=== PATIENT | male | born 1940 | race Caucasian/White ===

== ENCOUNTER → 2023-10-24 09:19 | Day surgery (SDC) | payer OTHER, SELFPAY ==
[2023-10-24 09:55] VITALS: BMI 30.8
--- NOTE | 2023-10-24 10:26 | ITS.CL.CARDI ---
[facility] - Cardioversion
Cardioversion
Procedure Report:
Date of Procedure: 10/24/23.
Procedure: Cardioversion.
Indication: Symptomatic atrial fibrillation.
Performing Physician: Mary Samuel MD
Technique: The patient was brought to the holding area. Signed informed consent was obtained. A time out was called and performed. The patient was sedated by a member of the anesthesia service. Anticoagulation status was reviewed and was
appropriate. R-2 pads were placed anteriorly and posteriorly. A 200 J synchronized biphasic shock followed by a 300J biphasic shock restored normal sinus rhythm without significant bradycardia. There were no complications.
Conclusion: Uncomplicated cardioversion from atrial fibrillation to sinus rhythm.
Recommendation: Routine post cardioversion care. Continue termite helper anticoagulation.
cc: Dr Reyes
== END | disposition home or self-care (01) ==
LOC: CATH 09:19
PROVIDERS: ATTENDING PHYSICIAN Nuclear Medicine Nuclear Cardiology; FAMILY PHYSICIAN Family Medicine; OTHER PHYSICIAN Internal Medicine Cardiovascular Disease
DX: I48.0 Paroxysmal atrial fibrillation (principal); I10 Essential (primary) hypertension; E78.00 Pure hypercholesterolemia, unspecified; I44.1 Atrioventricular block, second degree; Z95.0 Presence of cardiac pacemaker; Z87.891 Personal history of nicotine dependence; Z79.01 Long term (current) use of anticoagulants
CPT/HCPCS: 92960; 93005

== ENCOUNTER → 2023-11-09 06:58 | Outpatient (REF) | payer OTHER, SELFPAY | LOC: DHCBC/DCA 06:58 | PROVIDERS: ATTENDING PHYSICIAN Internal Medicine Cardiovascular Disease; FAMILY PHYSICIAN Family Medicine | DX: I48.0 Paroxysmal atrial fibrillation (principal); I10 Essential (primary) hypertension; I50.32 Chronic diastolic (congestive) heart failure; I70.0 Atherosclerosis of aorta | CPT/HCPCS: 78452; 93017; A9500; J2785 ==

== ENCOUNTER 2023-11-14 17:51 | Inpatient (IN) | payer OTHER, SELFPAY ==
[2023-11-14] VITALS (8 sets, daily range): BP systolic 145–169; BP diastolic 73–90; BMI 28.6
[2023-11-14 14:17] LABS: % Basophils 0.2 % (0-2); % Eosinophils 0.4 % (0-6); % Immature Granulocytes 0.3 % (0-0.5); % Lymphocytes 11.2 % (20.5-51.1); % Monocytes 10.9 % (1.7-9.3); Absolute Eosinophils 0.1 10^3/uL (0-0.7); Absolute Lymphocytes 1.5 10^3/uL (1.2-3.4); Absolute Monocytes 1.4 10^3/uL (0.1-0.6); Absolute Neutrophils 10.1 10^3/uL (1.4-6.5); Hematocrit 38.2 % (39.0-52.0); Hemoglobin 13.3 g/dL (13.0-18.0); Mean Corp Hgb Conc. 34.8 g/dL (33.0-37.0); Mean Corpuscular Hgb 30.7 pg (27.0-31.0); Mean Corpuscular Volume 88.2 fL (80.0-94.0); Mean Platelet Volume 10.3 fL (7.4-10.4); Nucleated Red Blood Cells % 0 % (-); Platelet Count 346 10^3/uL (130-400); Red Blood Cell Count 4.33 10^6/uL (4.70-6.10); Red Cell Dist. Width 16.8 % (11.5-14.5); White Blood Cell Count 13.2 10^3/uL (4.8-10.8)
[2023-11-14 14:22] LABS: ALT (SGPT) 22 U/L (0-50); AST (SGOT) 28 U/L (17-59); Alkaline Phosphatase 97 U/L (38-126); Blood Urea Nitrogen 16 mg/dl (9-20); Calcium 9.9 mg/dl (8.4-10.2); Carbon Dioxide 24 mmol/L (22-30); Chloride 104 mmol/L (98-107); Glucose 112 mg/dl (70-99); Potassium 3.3 mmol/L (3.5-5.1); Sodium 139 mmol/L (135-145); Total Bilirubin 1.1 mg/dl (0.2-1.3); Total Protein 6.8 g/dl (6.3-8.2); eGFR > 60.00
[2023-11-14 14:28] LABS: NT-proBNP 8130 pg/ml
--- NOTE | 2023-11-14 15:12 | ED.GENMED ---
History of Present Illness
General
Chief Complaint: Breathing Problem
Source: patient and spouse
Exam Limitations: none
Time Seen by Provider: 11/14/23 14:57
Nursing documentation reviewed up to this point in time: agreed with
Travel History
Have you had any contact with someone who has COVID-19?: No
Do you have any symptoms of coronavirus? Fever > 100 degrees, chills, cough, shortness of breath, sore throat, loss of taste or smell, muscle aches, or headache?: Yes
Symptoms:: sob
History of Present Illness
History of Present Illness:
83-year-old male with a past medical history of hypertension, CHF, atrial fibrillation, pacemaker who presents to the emergency department companied by his for evaluation of shortness of breath. Patient reports that he has had increasing
symptoms over the past few weeks particularly worsening over the past 48 hours. He says that he has been working with cardiology (follows with Dr. Reyes) to evaluate the symptoms over the past few weeks�he says initially he was called and told
that he was in atrial fibrillation per his pacemaker report. He had a cardioversion 3 weeks ago that did not last very long he says. He says that he has had a nuclear stress test and is scheduled to have an echocardiogram as part of outpatient
workup however over the past 48 hours symptoms significantly worsening which prompted trip to the emergency room instead. He says he has a mild cough particular in the morning when he wakes up. Has not noticed any weight gain or edema. He denies
any chest pain. He has not had any fevers or chills. He denies any other complaints.
Past History
Past History
ED Past Medical History: Arrthythmia (Atrial fibrillation), HTN, Hypercholesterolemia and Other (Prostatic hypertrophy)
ED Past Surgical History: Orthopedic
Social History
Tobacco: Former smoker
Drug: None
Review of Systems
Review of Systems
All Other Systems: ROS reviewed and negative except as documented in HPI and ROS
Constitutional: Denies fever or chills
EENT: Denies sore throat or runny nose
Respiratory: Reports cough and trouble breathing
Cardiac: Denies chest pain or palpitations
ABD/GI: Denies abdominal pain, nausea, vomiting or diarrhea
: Denies flank pain
Musculoskeletal: Denies edema, neck pain or back pain
Neurological: Denies headache, weakness or numbness
Phy Exam
Physical Exam
Physical Exam:
General: Awake, alert, oriented x3; no acute distress
Head: Normocephalic, atraumatic
Eyes: Conjunctiva normal
Throat: Airway intact, handling secretions
Neck: Trachea midline, supple without meningismus
Lungs: Pulse ox low normal 93% on room air, normal respiratory rate, no increased work of breathing, speaking in full sentences; bibasilar rales
Heart: Regular rate and rhythm, systolic murmur
Neuro: Cranial nerves grossly intact, speech fluid
Skin: no rash
Extremities: No edema in extremities, warm and well-perfused
Scores
Heart Failure Risk
Heart Failure Risk Score: Yes
History of Stroke or TIA: No
History of intubation for respiratory distress: No
Heart rate on ED arrival >/= 110: No
SaO2 <90% on arrival on room air: No
HR >/=110 during 3min walk test (or too ill to perform test): No
ECG has acute ischemic changes: No
Urea >/=12mmol/L (BUN 33.6mg/dL): No
Serum CO2>/=35mmol/L: No
Troponin I or T elevated to IL Level (0.4mg/dL): No
NT-proBNP >/=5,000ng/L (5,000pg/ml): Yes
HF Risk Score: 1
Admission Status: MEDIUM RISK 5.1% Consider observation or discharge to home with homecare & f/u visit to PCP/Guest Attendant, or SNF for treatment
Heart Score for Chest Pain Patients
STEMI patient?: Not applicable
Withdrawal Assessment of Alcohol
Withdrawal Assessment Completed?: Not applicable
Course
Orders/Labs/Results
Orders:
Orders
11/14/23 13:44
Electrocardiogram (*1) Urgent
Reason for Study: Shortness of Breath
11/14/23 13:45
EKG- Treatment ONCE
11/14/23 13:57
BNP [NT-proBNP] Urgent
Complete Blood Count/With Diff Urgent
Comprehensive Metabolic Panel Urgent
11/14/23 14:58
CR Chest - 2 Views Urgent
Comment:
Reason For Exam: sob
Abnormal Lab Results
11/14/23
13:57
WBC 13.2 H 10^3/uL
(4.8-10.8)
RBC 4.33 L 10^6/uL
(4.70-6.10)
Hct 38.2 L %
(39.0-52.0)
RDW 16.8 H %
(11.5-14.5)
Absolute Neuts (auto) 10.1 H 10^3/uL
(1.4-6.5)
Absolute Monos (auto) 1.4 H 10^3/uL
(0.1-0.6)
Neutrophils % 77.0 H %
(42.2-75.2)
Lymphocytes % 11.2 L %
(20.5-51.1)
Monocytes % 10.9 H %
(1.7-9.3)
Potassium 3.3 L mmol/L
(3.5-5.1)
Glucose 112 H mg/dl
(70-99)
11/14/23 13:57
11/14/23 13:57
Vital Signs
Initial and Last Documented VS:
Initial Vital Signs
Temp Pulse Resp BP Pulse Ox
36.8 C 70 18 167/86 93
11/14/23 13:41 11/14/23 13:41 11/14/23 13:41 11/14/23 13:41 11/14/23 13:41
Last Documented Vital Signs
Temp Pulse Resp BP Pulse Ox
36.8 C 70 18 167/86 93
11/14/23 13:41 11/14/23 13:41 11/14/23 13:41 11/14/23 13:41 11/14/23 13:41
MDM/Problems Addressed
Differential Diagnosis Includes:
CHF, pneumonia, anemia, asthma/bronchitis
MDM/Problems Addressed:
83-year-old male presents with progressive shortness of breath over the past few weeks much worse over the past 48 hours. Low normal pulse ox 93% on room air, mild hypertension on arrival; vital signs otherwise normal. Physical exam as above.
Plan to place an IV check labs including CBC and CMP, BNP. Will check chest x-ray and EKG. Will monitor closely reassess after the above.
Labs reviewed: CBC shows marked leukocytosis to 13.2; no anemia. CMP shows mild hypokalemia repleted p.o. BNP markedly elevated 8130. While EKG shows ventricular-paced rhythm atrial rhythm appears to be a flutter. Awaiting results of chest x-ray.
Chronic conditions affecting care:
CHF, A-fib
Acute Exacerbation and/or Progression of Chronic Illness:
Acutely hypertensive
Acute Exacerbation and/or Progression of Chronic Illness: HTN
*Radiology
Radiology exam reviewed: preliminary read by ED provider and radiology read reviewed
*Pulse Oximetry
Patient hypoxic: no
*EKG
Interpreted by ED Provider?: Yes
Heart Rate: 75
Rate: normal
Rhythm: ventricular paced
*Critical Care Note
Total Time (30-74mins, 75-104mins- exclusive of procedures): Not Applicable
Data Reviewed
Review of Other/Old Records Reveals: Labs, Records, Operative Reports and Discharge Summary
Source: patient, records and spouse
Patient Management
Discussion with other providers: Hospitalist (Discussed with hospitalist) and Medicaid Collection Specialist (Discussed with cardiology)
Escalation/DeEscalation of care consider admission/obs:
Admission indicated
ED Attending Note
-
Portions of this chart may have been created with voice recognition software.� Occasional wrong word or��sound alike� substitutions may have occurred due to the inherent limitations of voice recognition software.
Discharge Plan
Departure
Patient with high blood pressure during this ER visit?: Yes
Discharge Problem:
CHF (congestive heart failure)
Prescriptions:
No Action
tamsulosin 0.4 MG capsule
0.4 mg PO QPM
Patient Comments:
atorvastatin 40 MG tablet
40 mg PO DAILY
levalbuterol tartrate 45 mcg/actuation Hfa Aerosol Inhaler
1 puff INHALATION R Q6HPRN PRN (Reason: sob)
Patient Comments:
1 puff
Eliquis 5 MG tablet
5 mg PO BID Qty: 180 5RF
fluticasone propion-salmeterol [Wixela Inhub] 250-50 mcg/dose Blister With Device
1 inh INHALATION R BID
acetaminophen 325 mg Tablet
650 mg PO DAILYPRN PRN (Reason: mild pain)
vitamin B complex Tablet Extended Release
1 tab PO DAILY
pyridoxine (vitamin B6) 25 mg Tablet
25 mg PO DAILY
therapeutic multivitamin Tablet
1 tab PO DAILY
fexofenadine 180 mg Tablet
180 mg PO DAILY
ascorbic acid (vitamin C) [Vitamin C] 500 mg Tablet
500 mg PO DAILY
olopatadine [Pataday Twice Daily Relief] 0.1 % Drops
1 drp BOTH EYES DAILYPRN PRN (Reason: itchy eyes)
vitamin E 268 mg (400 unit) Capsule
268 mg PO DAILY
Glucosamine Chondroitin 550-30-1 mg Capsule
1 cap PO DAILY
ferrous sulfate [iron] 325 mg (65 mg iron) tablet
325 mg PO DAILY 30 Days Qty: 30 0RF
furosemide 40 mg Tablet
40 mg PO BID AT 0800,1600 30 Days Qty: 60 0RF
guaifenesin 600 mg Tablet Extended Release 12hr
1,200 mg PO Q12 7 Days Qty: 28 0RF
benzonatate 100 mg Capsule
200 mg PO TIDPRN PRN (Reason: cough) 7 Days Qty: 42 0RF
pantoprazole 40 mg Tablet,Delayed Release (Dr/Ec)
40 mg PO DAILY 30 Days Qty: 30 0RF
amiodarone 200 mg tablet
200 mg PO DAILY 30 Days Qty: 30 5RF
Interventions
Interventions:
*Risk Screen - Suicide Last Done: 11/14/23 13:41
*General Assessment Last Done: 11/14/23 13:41
*Neglect/Abuse Screening Last Done: 11/14/23 13:41
*ED COVID-19 Vaccine History Last Done: 11/14/23 13:41
--- NOTE | 2023-11-14 16:08 | CON.CAR ---
Addendum entered and electronically signed by Olivier Lopes MD 11/14/23 16:48:
I saw and examined the patient.
The SNOW GROOMER or PA's note was reviewed and I agree with the note.
Comment: General: Well developed, well nourished in NAD.
Neck: Supple, no JVD, HJR, carotids +2 B/L, no bruits bilaterally.
Heart: Non displaced PMI, RRR, 2/6 basal systolic murmur, No S3, S4, no rubs.
Lungs: Scattered rhonchi at the bases
Extremities: No clubbing, cyanosis or edema bilaterally.
Neuro: Grossly nonfocal, awake, alert and oriented x3.
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
stenosis, AAA with endovascular repair in 2011, GI bleed in July 2023 with AV malformation cauterization. He presents with shortness of breath, orthopnea, diastolic CHF.
Will assess with IV Lasix. Of note he had recurrent A-fib. This will need to be addressed as an outpatient as he is seeing electrophysiology and may consider ablation. His inquired about watchman this can be left up to outpatient
director of photography but he has tolerated anticoagulation well since his GI bleed in July 2024. Also of note patient is scheduled for Mohs surgery on 11/16. He really wants to get this procedure done. I asked him to call dermatology to see
whether Eliquis needs to be held. Discussed with patient and at bedside as well as emergency room doctor.
Original Note:
Consultation
Consultation Request
Date/Time Consultation Requested: 11/14/2023
Date/Time Consultation Performed: 11/14/2023 at 1545
Requesting Provider: Dr. Chou
Performing Provider: Dr. Lopes
Reason for Consultation: CHF
Medical History
-
History of Present Illness:
HPI: Chilango is an 83 year old male with PMH of chronic HFpEF, paroxysmal atrial fibrillation, HTN, HLD, PPM, , MR, AAA, and recent GIB. He presented to [facility] today due to worsening SOB. He states over the past 10 days he has had progressively
worsening SOB. Initially he was noticing SOB with exertion, however this progressed to orthopnea and SOB at rest and with minimal activity. He also noted some increased LE edema, however has not noticed any weight gain. He states he has been
compliant with his lasix and denies any dietary indiscretion or increased sodium intake. Due to worsening symptoms, he came to ER today for evaluation. In ER, he was found to have evidence of acute heart failure on exam. Chest xray with bl small
pleural effusions and proBNP 8130. EKG V paced at 75 BPM, however underlying afib noted. Cardiology consulted for evaluation. At this time patient is feeling well and denies any SOB sitting up in stretcher. He is not on supplemental O2 and pulse ox
is stable at 92-95 at rest.
PMH:
Chronic HFpEF
Paroxysmal atrial fibrillation
Chronic Eliquis anticoagulation
HTN
h/o Wenckebach
s/p Medtronic PPM 10/2022
Mild
Mild to moderate MR
HLD
AAA with endovascular repair 2011
h/o LGIB 07/2023
AVM s/p cauterization 08/01/2023
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
Past Medical History
Past Medical History: Other (In HPI)
Past Surgical History: Other (Intra-abdominal AAA repair 08/2012, tonsillectomy, splenectomy, inguinal hernia repair, shoulder surgery, right carpal tunnel release, Mohs surgery, cataract surgery, Medtronic permanent pacemaker 11/10/2022)
Social History
Tobacco: Former Smoker
Alcohol: Daily
Drug: None
Personal:
Living: With Family
Employment: Retired
Family History
Family History: Reviewed & Not Pertinent
Allergies / Home Medications
Allergy/AdvReac Type Severity Reaction Status Date / Time
ammonium chloride Allergy SKIN RASH Verified 11/14/23 13:44
banana Allergy itchy Verified 11/14/23 13:44
eyes,
throat
swelling
codeine Allergy Unknown Verified 11/14/23 13:44
formaldehyde Allergy skin rash Verified 11/14/23 13:44
Iodinated Contrast Media Allergy hives,swelling,throat Verified 11/14/23 13:44
swelling
melon Allergy itchy Verified 11/14/23 13:44
eyes,
throat
swelling
Penicillins Allergy hives,swell Verified 11/14/23 13:44
ing
Medication Instructions Recorded Confirmed Type
tamsulosin 0.4 mg capsule 0.4 mg PO QPM 08/16/12 10/24/23 History
atorvastatin 40 mg tablet 40 mg PO DAILY 08/02/18 10/24/23 History
levalbuterol tartrate 45 1 puff inhalation R Q6HPRN PRN sob 11/01/22 10/24/23 History
mcg/actuation aerosol inhaler
apixaban 5 mg tablet (Eliquis) 5 mg PO BID #180 tabs 11/10/22 10/24/23 Rx
acetaminophen 325 mg tablet 650 mg PO DAILYPRN PRN mild pain 07/31/23 10/24/23 History
ascorbic acid (vitamin C) 500 mg 500 mg PO DAILY 07/31/23 10/24/23 History
tablet (Vitamin C)
fexofenadine 180 mg tablet 180 mg PO DAILY 07/31/23 10/24/23 History
fluticasone 250 mcg-salmeterol 50 1 inh inhalation R BID 07/31/23 10/24/23 History
mcg/dose blistr powdr for
inhalation (Wixela Inhub)
glucosamine sulf dipot 1 cap PO DAILY 07/31/23 10/24/23 History
chlr,msm,chond 550 mg-C 30 mg-rubin
1 mg capsule (Glucosamine
Chondroitin)
olopatadine 0.1 % eye drops 1 drp BOTH EYES DAILYPRN PRN itchy 07/31/23 10/24/23 History
(Pataday Twice Daily Relief) eyes
pyridoxine (vitamin B6) 25 mg 25 mg PO DAILY 07/31/23 10/24/23 History
tablet
therapeutic multivitamin 1 tab PO DAILY 07/31/23 10/24/23 History
vitamin B complex 1 tab PO DAILY 07/31/23 10/24/23 History
vitamin E 268 mg (400 unit) capsule 268 mg PO DAILY 07/31/23 10/24/23 History
amiodarone 200 mg tablet 200 mg PO DAILY 30 days #30 tabs 08/08/23 10/24/23 Rx
benzonatate 100 mg capsule 200 mg PO TIDPRN PRN cough 7 days 08/08/23 10/24/23 Rx
#42 caps
ferrous sulfate 325 mg (65 mg 325 mg PO DAILY 30 days #30 tabs 08/08/23 10/24/23 Rx
iron) tablet (iron)
furosemide 40 mg tablet 40 mg PO BID AT 0800,1600 30 days 08/08/23 10/24/23 Rx
#60 tabs
guaifenesin 600 mg tablet, 1,200 mg PO Q12 7 days #28 tabs 08/08/23 10/24/23 Rx
extended release 12 hr
pantoprazole 40 mg tablet,delayed 40 mg PO DAILY 30 days #30 tabs 08/08/23 10/24/23 Rx
release
Review of Systems
-
History Source: Patient
All other systems: Negative unless noted
Physical Exam
Vital Signs
Temp Pulse Resp BP Pulse Ox
98.2 F 70 18 167/86 93
11/14/23 13:41 11/14/23 13:41 11/14/23 13:41 11/14/23 13:41 11/14/23 13:41
Lab Results
03/18/24 13:57
11/14/23 13:57
Cdy-M-Qnroaj[place] Pept 8130 pg/ml 11/14/23 13:57
Physical Exam
General: Well Developed, Well Nourished and No Apparent Distress
HEENT: Normocephalic, Anicteric and Moist Mucous Membranes
Respiratory: Crackles and Non Labored Respirations
Cardiac: S1/S2, Irregular Rhythm and Murmur
Musculoskeletal: No Clubbing, No Cyanosis and Edema
Skin: Warm and Dry
Neuro: AO x 3 and Nonfocal/Grossly Intact
Psych: Calm
Impression / Plan
-
PCP: Dr. Davalos
Drum Attendant: Dr. Reyes
Impression:
Presented with SOB
Acute on chronic HFpEF
Paroxysmal atrial fibrillation
Chronic Eliquis anticoagulation
HTN
h/o Wenckebach
s/p Medtronic PPM 10/2022
Mild
Mild to moderate MR
HLD
AAA with endovascular repair 2011
h/o LGIB 07/2023
AVM s/p cauterization 08/01/2023
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
Lexiscan stress test 11/09/2023: Perfusion imaging reveals a small area of mildly decreased perfusion that is fixed in the apical septal, apical anterior, apex, apical inferior segments consistent with soft tissue attenuation/pacing which partially
improves with prone imaging. Functional imaging shows hypokinesis of the apical septal, apical anterior, apical lateral, apex, and apical inferior segments. EF 41%
Echo 12/10/2021: EF 55 to 60%, mild concentric LVH, mild to moderate MR, mild with peak/mean gradients 25/13 mmHg, mild AI
Echo 08/02/2023: Ejection fraction 70%, dilated aortic root at 3.9 cm
Echo 11/15/2023: Study pending
Plan:
-Presented with worsening SOB over the past 10 days. In acute heart failure with b/l pleural effusions and proBNP 8130.
-Will start on IV lasix w/ 40mg now and 40 mg daily. Creat stable at 1.2.
-Has not noted weight gain, although has had poor appetite and decreased intake. Follow daily weights, I&Os.
-Echo 08/02/2023 noted EF 70%, was scheduled for repeat echo today, however missed appt as he was in the hospital. Will recheck this admission.
-He has history of persistent atrial fibrillation and underwent CV 10/24/2023. Reports he was in SR for approximately 5 hours, before recurrent afib noted.
-V paced on EKG and on review of telemetry w/ underlying rate controlled afib noted.
-Continue amiodarone 200mg daily.
-Continue Eliquis 5mg BID. Patient notes he is scheduled for Mohs surgery on 11/16, he will reach out to surgeon to see if AC needs to be held.
-History of LGIB. No recurrent bleeding and hemoglobin stable
-He has an appointment with EP, Dr. Lopez 12/13 to discuss possible ablation.
-K 3.3. Replete.
HPI: Chilango is an 83 year old male with PMH of chronic HFpEF, paroxysmal atrial fibrillation, HTN, HLD, PPM, , MR, AAA, and recent GIB. He presented to [facility] today due to worsening SOB. He states over the past 10 days he has had progressively
worsening SOB. Initially he was noticing SOB with exertion, however this progressed to orthopnea and SOB at rest and with minimal activity. He also noted some increased LE edema, however has not noticed any weight gain. He states he has been
compliant with his lasix and denies any dietary indiscretion or increased sodium intake. Due to worsening symptoms, he came to ER today for evaluation. In ER, he was found to have evidence of acute heart failure on exam. Chest xray with bl small
pleural effusions and proBNP 8130. EKG V paced at 75 BPM, however underlying afib noted. Cardiology consulted for evaluation. At this time patient is feeling well and denies any SOB sitting up in stretcher. He is not on supplemental O2 and pulse ox
is stable at 92-95% at rest.
Data Reviewed
-
EKG: Tracing Personally Visualized and interpreted
Radiology: Report Reviewed by me
Labs: Labs Reviewed by me
Old Records: Reviewed
--- NOTE | 2023-11-14 16:34 | HPS.HSE ---
Addendum entered and electronically signed by Lawanda Pride MD 11/14/23 17:58:
I saw and examined the patient.
The [facility]'s note was reviewed and I agree with the note.
Comment:
83 year old male with PMH of HFpEF, paroxysmal atrial fibrillation, HTN, HLD, PPM, , MR, AAA, GI bleed; presented with shortness of breath and DELANEY for past 10 days. He also noted LE edema, but denied to weight gain. He states he has been compliant
with his Lasix. Denied to chest pain
A/P:
# acute on chronic HFpEF
BNP 8000
CXR unrevealing
Cont IV Lasix 40 mg daily, follow I&O, monitor daily weight
Check echo
Check COVID and flu
Card CS
# Chronic leukocytosis
Afebrile
Continue to monitor
# Hypokalemia likely from diuretics
Potassium 3.3, Repleted in ER
Check Mag level
Follow daily BMP
# Paroxysmal A-fib
# s/p CV 10/24/2023.
Continue amiodarone 200mg daily.
Continue Eliquis 5mg BID.
# Hypertension
Monitor BP, not on specific med outpt
Cont lasix continued
# Hyperlipidemia
Statin
# Iron deficiency anemia
Ferrous sulfate continued
# History of COPD
Not in acute exacerbation
Cont Breo, cont Levalbuterol
# BPH
Cont Flomax
DVT ppx: PEDIATRIC DERMATOLOGIST eliquis
Full Code
Original Note:
Family Physician
-
Family Physician: Mo Lopez
Chief Complaint
-
sob
History of Present Illness
83 year old male with PMH of chronic HFpEF, paroxysmal atrial fibrillation, HTN, HLD, PPM, , MR, AAA, GI bleed presented to us with shortness of breath for past 10 days. started of with sob with activity. stated with orthopnea.noted LE edema
today. denied weight gain. He states he has been compliant with his Lasix. denied chest pain. denied fever, chills, chest congestion, cough, runny nose.denied FRY, dizzy or syncopal episode. denied abdominal pain, n,v, d. denied dysuria or hematuria.
chest x ray with cardiomegaly. 88-95 on RA. received a dose of Lasix in ER. admitting for further management.
Medical History
Past Medical History
Past Medical History: Reports Other
Additional Past Medical History:
Chronic HFpEF
Paroxysmal atrial fibrillation
Chronic Eliquis anticoagulation
HTN
h/o Wenckebach
s/p Medtronic PPM 10/2022
Mild
Mild to moderate MR
HLD
AAA with endovascular repair 2011
h/o LGIB 07/2023
AVM s/p cauterization 08/01/2023
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
Past Surgical History: Reports Other
Additional Past Surgical History:
intra-abdominal AAA repair 08/2012, tonsillectomy, splenectomy, inguinal hernia repair, shoulder surgery, right carpal tunnel release, Mohs surgery, cataract surgery, Medtronic permanent pacemaker 11/10/2022
Social History
Tobacco: Former Smoker
Alcohol: Daily (1 small glass of vodka)
Drug: None
Personal:
Living: With Family
Family History
Family History: Not pertinent
Allergies / Home Medications
Allergies reflects when Allergies were last updated in [employer].
Home Medications with original date entered in [employer]
Allergy/Medication List:
Allergies
Allergy/AdvReac Type Severity Reaction Status Date / Time
ammonium chloride Allergy SKIN RASH Verified 11/14/23 13:44
banana Allergy itchy Verified 11/14/23 13:44
eyes,
throat
swelling
codeine Allergy Unknown Verified 11/14/23 13:44
formaldehyde Allergy skin rash Verified 11/14/23 13:44
Iodinated Contrast Media Allergy hives,swelling,throat Verified 11/14/23 13:44
swelling
melon Allergy itchy Verified 11/14/23 13:44
eyes,
throat
swelling
Penicillins Allergy hives,swell Verified 11/14/23 13:44
ing
Home Medications
tamsulosin 0.4 mg capsule 0.4 mg PO DAILY@1000 08/16/12
atorvastatin 40 mg tablet 40 mg PO DAILY 08/02/18
levalbuterol tartrate 45 mcg/actuation aerosol inhaler 1 puff inhalation R Q6HPRN PRN sob/wheezing 11/01/22
apixaban 5 mg tablet (Eliquis) 5 mg PO BID #180 tabs 11/10/22
acetaminophen 325 mg tablet 650 mg PO DAILYPRN PRN mild pain 07/31/23
ascorbic acid (vitamin C) 500 mg tablet (Vitamin C) 500 mg PO DAILY 07/31/23
fexofenadine 180 mg tablet 180 mg PO DAILY@1000 07/31/23
glucosamine sulf dipot chlr,msm,chond 550 mg-C 30 mg-rubin 1 mg capsule (Glucosamine Chondroitin) 1 cap PO BID 07/31/23
olopatadine 0.1 % eye drops (Pataday Twice Daily Relief) 1 drp BOTH EYES DAILYPRN PRN itchy eyes 07/31/23
pyridoxine (vitamin B6) 25 mg tablet 25 mg PO DAILY 07/31/23
therapeutic multivitamin 1 tab PO DAILY 07/31/23
vitamin B complex 1 tab PO DAILY 07/31/23
vitamin E 268 mg (400 unit) capsule 268 mg PO DAILY 07/31/23
amiodarone 200 mg tablet 200 mg PO DAILY 30 days #30 tabs 08/08/23
ferrous sulfate 325 mg (65 mg iron) tablet (iron) 325 mg PO HS 11/14/23
fluticasone furoate 200 mcg-vilanterol 25 mcg/dose inhalation powder (Breo Ellipta) 1 inh inhalation R DAILY 11/14/23
furosemide 40 mg tablet 40 mg PO DAILY 11/14/23
guaifenesin 600 mg tablet, extended release 12 hr 1,200 mg PO Q12 PRN congestion 11/14/23
Review of Systems
-
Constitutional: Reports No Symptoms
EENT: Reports No Symptoms
Respiratory: Reports Trouble Breathing
Cardiac: Reports No Symptoms
Abdomen/GI: Reports No Symptoms
: Reports No Symptoms
Musculoskeletal: Reports Edema (b/l LE)
Skin: Reports No Symptoms
Neurological: Reports No Symptoms
Endocrine: Reports No Symptoms
Hematologic/Lymphatic: Reports No Symptoms
Psych: Reports No Symptoms
Physical Exam
Vital Signs
Vital Signs
Temp Pulse Resp BP Pulse Ox
98.2 F 70 18 167/86 93
11/14/23 13:41 11/14/23 13:41 11/14/23 13:41 11/14/23 13:41 11/14/23 13:41
Physical Exam
General: Well Developed, Well Nourished and No Apparent Distress
HEENT: NormoCephalic, Moist mucous membranes and Atraumatic
Respiratory: Rales
Cardiac: S1/S2 and Regular Rhythm; No Murmur or Rub
GI: Soft, Non Tender, Non Distended and Normal Bowel Sounds; No Organomegaly
Rectal: Deferred by Provider
Musculoskeletal: No Clubbing, No Cyanosis and No Edema
Skin: No Rash
Neuro: AO x 3 and Nonfocal/grossly intact
Psych: Calm
Laboratory Results
-
11/14/23 13:57
11/14/23 13:57
Laboratory Results
Total Bilirubin 1.1 mg/dl (0.2-1.3) 11/14/23 13:57
AST 28 U/L (17-59) 11/14/23 13:57
ALT 22 U/L (0-50) 11/14/23 13:57
Alkaline Phosphatase 97 U/L (38-126) 11/14/23 13:57
Data Reviewed
-
Diagnostic Radiology: Report Reviewed by me
Lab Data: Labs Reviewed by me
Impression/Plan
-
#progressively exertional dyspnea likely from acute on chronic congestive heart failure
-BNP 2300
-CXR Chronic obstructive pulmonary disease.Small bilateral pleural effusions.Mild cardiomegaly
-EKG with ventricular paced rhythm
-88-95 on RA
-Provide supplemental oxygen to keep sat greater than 92
-Wean as tolerated
-Lasix 40 Mg iv daily
-echo
-strict I&O
-daily weight
-obtain COVID and FLU
-cardiology consulted
# Chronic leukocytosis
-WBCs 13.2
-Afebrile
-Continue to monitor
# Hypokalemia likely from diuretics
-Potassium 3.3
-Repleted in ER
-Monitor BMP
-Monitor BMP in a.m.
# Paroxysmal A-fib
-underwent CV 10/24/2023.
-Continue amiodarone 200mg daily.
-Continue Eliquis 5mg BID.
#hx Hypertension
-Bp stable
-lasix continued
# Hyperlipidemia
-Statin
# Iron deficiency anemia
-Ferrous sulfate continued
# History of COPD
-Not in acute exacerbation
-Breo continued
-Levalbuterol continued
# BPH
-Flomax continued
dvt ppx eliquis
Full Code
[2023-11-14] MEDS: LASIX 40 MG IV (16:48)
[2023-11-14] MEDS: KCL 40 MEQ PO (16:48)
[2023-11-14 17:55] LABS: COVID-19 Antigen Negative (Negative)
[2023-11-14 18:30] LABS: Magnesium 1.9 mg/dl (1.6-2.3)
[2023-11-14] MEDS: ELIQUIS 5 MG PO (20:34)
[2023-11-14] MEDS: FEOSOL 325 MG PO (21:04)
[2023-11-14] MEDS: SYMBICORT 160/4.5 MCG INHALER 2 PUFF INH (22:33)
[2023-11-15] VITALS (7 sets, daily range): BP systolic 123–155; BP diastolic 66–92; PULSE 64; O2SAT 97; BMI 28.0
[2023-11-15] MEDS: SYMBICORT 160/4.5 MCG INHALER 2 PUFF INH ×2 (07:12→17:59)
[2023-11-15 08:01] LABS: Hematocrit 37.7 % (39.0-52.0); Hemoglobin 12.6 g/dL (13.0-18.0); Mean Corp Hgb Conc. 33.4 g/dL (33.0-37.0); Mean Corpuscular Volume 89.8 fL (80.0-94.0); Mean Platelet Volume 10.9 fL (7.4-10.4); Platelet Count 353 10^3/uL (130-400); Red Cell Dist. Width 16.9 % (11.5-14.5); White Blood Cell Count 10.6 10^3/uL (4.8-10.8)
[2023-11-15 08:21] LABS: ALT (SGPT) 19 U/L (0-50); AST (SGOT) 26 U/L (17-59); Albumin 3.6 g/dl (3.5-5.0); Alkaline Phosphatase 95 U/L (38-126); Blood Urea Nitrogen 13 mg/dl (9-20); Calcium 9.5 mg/dl (8.4-10.2); Carbon Dioxide 27 mmol/L (22-30); Chloride 103 mmol/L (98-107); Direct Bilirubin 0.1 mg/dl (0.0-0.4); Estimated Creatinine Clearance 42 ml/min; Glucose 95 mg/dl (70-99); HDL Cholesterol 84 mg/dl; LDL Cholesterol, Calculated 40 mg/dl; Magnesium 1.9 mg/dl (1.6-2.3); Potassium 3.8 mmol/L (3.5-5.1); Sodium 140 mmol/L (135-145); Total Bilirubin 1.2 mg/dl (0.2-1.3); Total Cholesterol 136 mg/dl (50-199); Total Protein 6.2 g/dl (6.3-8.2); Triglyceride 61 mg/dl (10-149); Very Low Density Lipoprotein 12 mg/dl (0-30); eGFR > 60.00
[2023-11-15 08:50] LABS: TSH Reflex To Free T4 1.72 uIU/ml (0.47-4.68)
--- NOTE | 2023-11-15 08:50 | CARDSERVLU ---
Echocardiogram with [facility]ason completed after protocol screening completed. Allergies verified.
Patent IV site: ___L Wrist__
IV site flushed with 0.9% NaCl pre and post administration.
Diluted bolus method utilized to enhance visualization of ventricular elam.
Total volume given: _2.5___ mL
Patient tolerated all procedures well without complications.
[2023-11-15] MEDS: LASIX 40 MG IV (09:28)
[2023-11-15] MEDS: CLARITIN 10 MG PO (09:32)
[2023-11-15] MEDS: FLOMAX 0.400000000000000022 MG PO (09:32)
[2023-11-15] MEDS: LIPITOR 40 MG PO (09:33)
[2023-11-15] MEDS: PACERONE 200 MG PO (09:33)
[2023-11-15] MEDS: ELIQUIS 5 MG PO ×2 (09:33→21:00)
[2023-11-15] MEDS: XOPENEX HFA 45 MCG INHALER 1 PUFF INH ×2 (11:24→17:59)
--- NOTE | 2023-11-15 11:56 | W.PN.HOSP.TC ---
Today's Communication/Plan
-
see A/P
Assessment / Plan
Assessment / Plan
83 year old male with PMH of HFpEF, paroxysmal atrial fibrillation, HTN, HLD, PPM, , MR, AAA, GI bleed; presented with shortness of breath and DELANEY for past 10 days. He also noted LE edema, but denied to weight gain. He states he has been compliant
with his Lasix. Denied to chest pain
A/P:
# acute on chronic HFpEF
BNP 8000
CXR unrevealing
Cont IV Lasix 40 mg daily, follow I&O, monitor daily weight
Check echo
Start low dose Toprol
COVID/Flu are negative
Card on board
# Reactive Leukocytosis, resolved
Afebrile
# Hypokalemia from diuretics
Repleted lyte
# Paroxysmal A-fib
# s/p CV 10/24/2023.
Continue amiodarone 200mg daily.
Continue Eliquis 5mg BID.
# Hypertension
Monitor BP, not on specific med outpt
Start low dose Toprol
Cont lasix as above
# Hyperlipidemia
Statin
# Iron deficiency anemia
Ferrous sulfate continued
# History of COPD
Not in acute exacerbation
Cont Breo, cont Levalbuterol
# BPH
Cont Flomax
DVT ppx: CAREER GUIDANCE TECHNICIAN eliquis
Full Code
DW and daughter at bedside
Anticipated Discharge: > 48 hours
Subjective/Interval History
-
Date of Service: November 15, 2023
Objective Data
-
Labs:
Laboratory Results
11/15/23
06:22
WBC 10.6
Hgb 12.6 L
Hct 37.7 L
Plt Count 353
Sodium 140
Potassium 3.8
Chloride 103
Carbon Dioxide 27
BUN 13
Creatinine 1.2
Glucose 95
Calcium 9.5
Total Bilirubin 1.2
AST 26
ALT 19
Alkaline Phosphatase 95
Vital Signs:
Vital Signs
Temp Pulse Resp BP Pulse Ox
36.8 C 72 16 163/80 95
11/15/23 07:00 11/15/23 11:39 11/15/23 11:39 11/15/23 09:28 11/15/23 11:39
I&O
11/14/23 11/15/23 11/16/23
06:59 06:59 06:59
Intake Total 480 / 480
Output Total 850 / 850
Balance -370 / -370
Review of Systems
-
All other systems: Reviewed and negative
Respiratory: Reports Trouble Breathing
Physical Exam
-
General: Well Developed, Well Nourished, No Apparent Distress, Comfortable and Conversant; Negative Respiratory Distress
HEENT: Normocephalic, Atraumatic, Nose Appears Normal and Ears Appear Normal; Negative Oxygen
Respiratory: Clear to Auscultation and Non Labored Respirations; Negative Accessory Resp Muscle Use
Cardiac: Regular Rhythm and S1/S2
GI: Soft, Nontender, Nondistended and Normal Bowel Sounds
Skin: Warm and Dry
Neuro: Awake, Alert, Oriented and AO x 3
Psych: Calm and Intact Judgement/Insight
Data Reviewed
-
Labs: Labs Reviewed by me
[2023-11-15] MEDS: TOPROL XL 12.5 MG PO (12:39)
--- NOTE | 2023-11-15 12:56 | PTOTSP ---
PATIENT FUNCTIONING INDEPENDENTLY ON LEVEL SURFACES WELL ELEVATIONS. COMPLAINS OF SHORTNESS OF BREATH HOWEVER ROOM AIR SPO2 NO LOWER THAN 91%. RN AWARE. PATIENT REQUIRES NO FURTHER SKILLED P.T. AT THIS TIME. RECOMMEND PATIENT AMBULATE IN HALLS
AD [facility] AND CONTINUE OUTPATIENT P.T. UPON DISCHARGE. WILL DISCHARGE FROM P.T. SERVICES.
--- NOTE | 2023-11-15 15:53 | W.PN.CARDCBS ---
Addendum entered and electronically signed by Eladio Love MD 11/15/23 16:20:
I saw and examined the patient.
The Piano Mover's note was reviewed and I agree with the note.
Comment:
GEN: No distress, awake, Ox3
HEENT: supple, anicteric, mmm
LUNGS: CTA, no wheezes/rales
CV: Irreg, S1/S2, 1/6 syst LSB, no gallop
ABD: soft, BS+, NT/ND
EXT: No edema
NEURO: Gross non-focal
SKIN: No rash
Plan:
Continue IV Lasix. Replete potassium.
He remains in A-fib/flutter. Continue amiodarone low-dose Toprol for rate control for now. He failed recent cardioversion.
Okay to proceed with Mohs procedure while on Eliquis.
Will check echo today. Hopeful for discharge tomorrow
Original Note:
Today's Communication / Plan
-
Responded well to IV diuresis
Replete potassium
Likely transition to oral Lasix in next 24 hours
Continue amiodarone and low-dose Toprol for rate control
Echo pending
Impression / Plan
-
PCP: Dr. Davalos
Tape Rules Printing Machine Operator: Dr. Reyes
Impression:
Presented with SOB
Acute on chronic HFpEF
Paroxysmal atrial fibrillation
Chronic Eliquis anticoagulation
HTN
h/o Wenckebach
s/p Medtronic PPM 10/2022
Mild
Mild to moderate MR
HLD
AAA with endovascular repair 2011
h/o LGIB 07/2023
AVM s/p cauterization 08/01/2023
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
Lexiscan stress test 11/09/2023: Perfusion imaging reveals a small area of mildly decreased perfusion that is fixed in the apical septal, apical anterior, apex, apical inferior segments consistent with soft tissue attenuation/pacing which partially
improves with prone imaging. Functional imaging shows hypokinesis of the apical septal, apical anterior, apical lateral, apex, and apical inferior segments. EF 41%
Echo 12/10/2021: EF 55 to 60%, mild concentric LVH, mild to moderate MR, mild with peak/mean gradients 25/13 mmHg, mild AI
Echo 08/02/2023: Ejection fraction 70%, dilated aortic root at 3.9 cm
Echo 11/15/2023: Pending
Plan:
-Presented 11/14/2023 with worsening SOB over the past 10 days. In acute heart failure with b/l pleural effusions and proBNP 8130.
-Weight down at least 5 pounds overnight with IV diuresis. Continue IV 40 mg for another 24 hours then likely transition to oral Lasix in next 24 hours.
-Creat stable at 1.2.
-K 3.8. Replete.
-Echo 08/02/2023 noted EF 70%. Repeat echo pending
-He has history of persistent atrial fibrillation and underwent CV 10/24/2023. Reports he was in SR for approximately 5 hours, before recurrent afib noted.
-V paced on EKG and on review of telemetry w/ underlying rate controlled afib noted.
-He has an appointment with EP, Dr. Lopez 12/13 to discuss possible ablation.
-Continue amiodarone 200mg daily and low dose Toprol for rate control.
-Continue Eliquis 5mg BID. Patient notes he is scheduled for Mohs surgery on 11/16. Patient discussed with surgeon and is okay to remain on Eliquis.
-History of LGIB. No recurrent bleeding and hemoglobin stable; hemoglobin 12.6
HPI: Chilango is an 83 year old male with PMH of chronic HFpEF, paroxysmal atrial fibrillation, HTN, HLD, PPM, , MR, AAA, and recent GIB. He presented to [facility] today due to worsening SOB. He states over the past 10 days he has had progressively
worsening SOB. Initially he was noticing SOB with exertion, however this progressed to orthopnea and SOB at rest and with minimal activity. He also noted some increased LE edema, however has not noticed any weight gain. He states he has been
compliant with his lasix and denies any dietary indiscretion or increased sodium intake. Due to worsening symptoms, he came to ER today for evaluation. In ER, he was found to have evidence of acute heart failure on exam. Chest xray with bl small
pleural effusions and proBNP 8130. EKG V paced at 75 BPM, however underlying afib noted. Cardiology consulted for evaluation. At this time patient is feeling well and denies any SOB sitting up in stretcher. He is not on supplemental O2 and pulse ox
is stable at 92-95% at rest.
Progress Note - Tape Rules Printing Machine Operator
Subjective
Date of Service: November 15, 2023
Patient seen and examined. Patient reports he is feeling considerably better. He notes significantly improved lower extremity edema and his shortness of breath is better as well.
Objective
Labs:
11/15/23 06:22
11/15/23 06:22
Labs
Hgb 12.6 g/dL (13.0-18.0) L 11/15/23 06:22
Hct 37.7 % (39.0-52.0) L 11/15/23 06:22
Plt Count 353 10^3/uL (130-400) 11/15/23 06:22
Sodium 140 mmol/L (135-145) 11/15/23 06:22
Potassium 3.8 mmol/L (3.5-5.1) 11/15/23 06:22
BUN 13 mg/dl (9-20) 11/15/23 06:22
Creatinine 1.2 mg/dL (0.7-1.3) 11/15/23 06:22
Glucose 95 mg/dl (70-99) 11/15/23 06:22
Vital Signs and I&O:
Vital Signs
Temp Pulse Resp BP Pulse Ox
97.9 F 80 16 155/89 95
11/15/23 11:00 11/15/23 12:39 11/15/23 11:39 11/15/23 12:39 11/15/23 11:39
Vital Signs
Temp Pulse Resp BP Pulse Ox
97.9 F 80 16 155/89 95
11/15/23 11:00 11/15/23 12:39 11/15/23 11:39 11/15/23 12:39 11/15/23 11:39
Intake & Output
11/13/23 11/14/23 11/15/23 11/16/23
06:59 06:59 06:59 06:59
Intake Total 480 / 480
Output Total 850 / 850
Balance -370 / -370
Physical Exam
Physical Exam
GEN: No distress, awake, Ox3
HEENT: supple, anicteric, mmm
LUNGS: Faint crackle at left base otherwise CTA, no wheezes/rales, on room air
CV: Reg, S1/S2, 2/6 harsh syst murmur
ABD: soft, BS+, NT/ND
EXT: No edema, clubbing cyanosis
NEURO: Gross non-focal
SKIN: No rash, warm, dry, pink
--- NOTE | 2023-11-15 16:13 | CM ---
CM met with pt bedside
Pt resides with his spouse in a [place] community, [facility] with 2[facility]
Pt is independent with his ADls without any DMEs
He currently attends outpt therapy
PCP- Josep Lopez
Rx- JOSIE Sood
PT eval- no needs noted
Discharge Disposition- home, no needs anticipated
[2023-11-15] MEDS: KCL 40 MEQ PO (17:31)
[2023-11-15] MEDS: FEOSOL 325 MG PO (21:00)
[2023-11-16 03:55] VITALS: BP 132/66
[2023-11-16 06:00] VITALS: BMI 28.0
[2023-11-16 07:00] VITALS: BP 147/82
[2023-11-16] MEDS: XOPENEX HFA 45 MCG INHALER 1 PUFF INH (07:41)
[2023-11-16] MEDS: SYMBICORT 160/4.5 MCG INHALER 2 PUFF INH (07:41)
--- NOTE | 2023-11-16 07:54 | W.PN.CARDCBS ---
Addendum entered and electronically signed by Olivier Lopes MD 11/16/23 16:15:
I saw and examined the patient.
The [employer]ENCH COMBER or PA's note was reviewed and I agree with the note.
Comment: General: Well developed, well nourished in NAD.
Neck: Supple, no JVD, HJR, carotids +2 B/L, no bruits bilaterally.
Heart: Non displaced PMI, RRR, no murmurs, No S3, S4, no rubs.
Lungs: Scattered rhonchi
Extremities: No clubbing, cyanosis or edema bilaterally.
Neuro: Grossly nonfocal, awake, alert and oriented x3
Stable cardiology status for discharge to home on Lasix 40 mg daily. Okay for Mohs surgery in a.m. without further testing. Will arrange cardiology follow-up in 1 minutes consider ischemic evaluation given reduced ejection fraction. Discussed
with patient and at bedside as well as nursing..
Original Note:
Today's Communication / Plan
-
Transition to PO lasis 40mg daily
Will arrange follow up.
Impression / Plan
-
PCP: Dr. Davalos
Seal Delivery Vehicle Team Technician: Dr. Reyes
Impression:
Presented with SOB
Acute on chronic HFrEF
Paroxysmal atrial fibrillation
Chronic Eliquis anticoagulation
Cardiomyopathy
HTN
h/o Wenckebach
s/p Medtronic PPM 10/2022
Mild
Severe MR
HLD
AAA with endovascular repair 2011
h/o LGIB 07/2023
AVM s/p cauterization 08/01/2023
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
Lexiscan stress test 11/09/2023: Perfusion imaging reveals a small area of mildly decreased perfusion that is fixed in the apical septal, apical anterior, apex, apical inferior segments consistent with soft tissue attenuation/pacing which partially
improves with prone imaging. Functional imaging shows hypokinesis of the apical septal, apical anterior, apical lateral, apex, and apical inferior segments. EF 41%
Echo 12/10/2021: EF 55 to 60%, mild concentric LVH, mild to moderate MR, mild with peak/mean gradients 25/13 mmHg, mild AI
Echo 08/02/2023: Ejection fraction 70%, dilated aortic root at 3.9 cm
Echo 11/15/2023: EF 30-35%, mid to distal anterior and anteroseptal hypokinesis, apical akinesis, severe MR, moderate TR, estimated PAP 60-65%
Plan:
-Presented 11/14/2023 with worsening SOB over the past 10 days. In acute heart failure with b/l pleural effusions and proBNP 8130.
-Weight down at least 5 pounds this admission with IV diuresis. Volume status improved. Slept well overnight with no SOB.
-Will transition to PO lasix 40mg daily. Creat stable at 1.3. Check BMP in 1 week as OP.
-Echo 11/14 w/ newly reduced EF at 30-35% and severe MR. Discussed with patient and will consider further workup/cath as OP.
-He has history of persistent atrial fibrillation and underwent CV 10/24/2023. Reports he was in SR for approximately 5 hours, before recurrent afib noted.
-V paced on EKG and on review of telemetry w/ underlying rate controlled afib noted.
-He has an appointment with EP, Dr. Lopez 12/14/2023 to discuss possible ablation.
-Continue amiodarone 200mg daily and low dose Toprol for rate control.
-Continue Eliquis 5mg BID. Patient notes he is scheduled for Mohs surgery on 11/16. Patient discussed with surgeon and is okay to remain on Eliquis.
-History of LGIB. No recurrent bleeding and hemoglobin stable.
-Will arrange follow up.
HPI: Chilango is an 83 year old male with PMH of chronic HFpEF, paroxysmal atrial fibrillation, HTN, HLD, PPM, , MR, AAA, and recent GIB. He presented to [facility] today due to worsening SOB. He states over the past 10 days he has had progressively
worsening SOB. Initially he was noticing SOB with exertion, however this progressed to orthopnea and SOB at rest and with minimal activity. He also noted some increased LE edema, however has not noticed any weight gain. He states he has been
compliant with his lasix and denies any dietary indiscretion or increased sodium intake. Due to worsening symptoms, he came to ER today for evaluation. In ER, he was found to have evidence of acute heart failure on exam. Chest xray with bl small
pleural effusions and proBNP 8130. EKG V paced at 75 BPM, however underlying afib noted. Cardiology consulted for evaluation. At this time patient is feeling well and denies any SOB sitting up in stretcher. He is not on supplemental O2 and pulse ox
is stable at 92-95% at rest.
Progress Note - Seal Delivery Vehicle Team Technician
Subjective
Date of Service: November 16, 2023
Feeling well. SOB improved, no edema.
Objective
Labs:
Labs
Hgb 12.6 g/dL (13.0-18.0) L 11/15/23 06:22
Hct 37.7 % (39.0-52.0) L 11/15/23 06:22
Plt Count 353 10^3/uL (130-400) 11/15/23 06:22
Sodium 140 mmol/L (135-145) 11/15/23 06:22
Potassium 3.8 mmol/L (3.5-5.1) 11/15/23 06:22
BUN 13 mg/dl (9-20) 11/15/23 06:22
Creatinine 1.2 mg/dL (0.7-1.3) 11/15/23 06:22
Glucose 95 mg/dl (70-99) 11/15/23 06:22
Vital Signs and I&O:
Vital Signs
Temp Pulse Resp BP Pulse Ox
97.8 F 75 16 132/66 96
11/16/23 03:55 11/16/23 07:46 11/16/23 07:46 11/16/23 03:55 11/16/23 07:46
Vital Signs
Temp Pulse Resp BP Pulse Ox
97.8 F 75 16 132/66 96
11/16/23 03:55 11/16/23 07:46 11/16/23 07:46 11/16/23 03:55 11/16/23 07:46
Intake & Output
11/14/23 11/15/23 11/16/23 11/17/23
06:59 06:59 06:59 06:59
Intake Total 480 / 480 1620 / 1620
Output Total 850 / 850 1025 / 1025
Balance -370 / -370 595 / 595
Physical Exam
Physical Exam
GEN: No distress, awake, alert, oriented x3
HEENT: supple, anicteric, mmm
LUNGS: CTA, no wheezes/rales, on room air
CV: Reg, S1/S2, 2/6 harsh syst murmur
ABD: soft, BS+, NT/ND
EXT: No edema, clubbing, or cyanosis
NEURO: Gross non-focal
SKIN: No rash, warm, dry, pink
[2023-11-16 07:59] LABS: Hemoglobin 13.8 g/dL (13.0-18.0); Mean Corp Hgb Conc. 33.7 g/dL (33.0-37.0); Mean Corpuscular Hgb 30.4 pg (27.0-31.0); Mean Corpuscular Volume 90.3 fL (80.0-94.0); Mean Platelet Volume 11.3 fL (7.4-10.4); Platelet Count 366 10^3/uL (130-400); Red Blood Cell Count 4.54 10^6/uL (4.70-6.10); Red Cell Dist. Width 17.1 % (11.5-14.5); White Blood Cell Count 9.5 10^3/uL (4.8-10.8)
[2023-11-16 08:09] LABS: Blood Urea Nitrogen 18 mg/dl (9-20); Calcium 9.1 mg/dl (8.4-10.2); Carbon Dioxide 27 mmol/L (22-30); Chloride 103 mmol/L (98-107); Estimated Creatinine Clearance 39 ml/min; Glucose 90 mg/dl (70-99); Magnesium 1.8 mg/dl (1.6-2.3); Potassium 3.9 mmol/L (3.5-5.1); Sodium 139 mmol/L (135-145); eGFR 54.51
[2023-11-16] MEDS: TOPROL XL 12.5 MG PO (08:53)
[2023-11-16] MEDS: PACERONE 200 MG PO (08:54)
[2023-11-16] MEDS: LASIX 40 MG IV (08:54)
[2023-11-16] MEDS: LIPITOR 40 MG PO (08:54)
[2023-11-16] MEDS: ELIQUIS 5 MG PO (08:54)
[2023-11-16] MEDS: CLARITIN 10 MG PO (09:38)
[2023-11-16] MEDS: FLOMAX 0.400000000000000022 MG PO (09:38)
[2023-11-16 11:00] VITALS: BP 125/71
--- NOTE | 2023-11-16 12:26 | W.PN.HOSP.TC ---
Addendum entered and electronically signed by Lawanda Pride MD 11/16/23 15:16:
total DC time 35 min
Original Note:
Today's Communication/Plan
-
DC home with
Assessment / Plan
Assessment / Plan
83 year old male with PMH of HFpEF, paroxysmal atrial fibrillation, HTN, HLD, PPM, , MR, AAA, GI bleed; presented with shortness of breath and DELANEY for past 10 days. He also noted LE edema, but denied to weight gain. He states he has been compliant
with his Lasix. Denied to chest pain
A/P:
# acute on chronic HFpEF
BNP 8000
CXR unrevealing
IV Lasix 40 mg daily -> PO Lasix 40mg daily
Echo: Mid to distal anterior and anteroseptal hypokinesis. EF 30-35%.�Severe mitral regurgitation.
Started low dose Toprol , cont
COVID/Flu are negative
Card on board
# Reactive Leukocytosis, resolved
Afebrile
# Hypokalemia from diuretics
Repleted lyte
# Paroxysmal A-fib
# s/p CV 10/24/2023.
Continue amiodarone 200mg daily.
Continue Eliquis 5mg BID.
# Hypertension
Monitor BP, not on specific med outpt
Started low dose Toprol
Cont lasix as above
# Hyperlipidemia
Statin
# Iron deficiency anemia
Ferrous sulfate continued
# History of COPD
Not in acute exacerbation
Cont Breo, cont Levalbuterol
# BPH
Cont Flomax
DVT ppx: T[employer]ING M[employer]TER eliquis
Full Code
DW at bedside
Anticipated Discharge: Today
Subjective/Interval History
-
Date of Service: November 16, 2023
Objective Data
-
Labs:
Laboratory Results
11/16/23
06:25
WBC 9.5
Hgb 13.8
Hct 41.0
Plt Count 366
Sodium 139
Potassium 3.9
Chloride 103
Carbon Dioxide 27
BUN 18
Creatinine 1.3
Glucose 90
Calcium 9.1
Vital Signs:
Vital Signs
Temp Pulse Resp BP Pulse Ox
36.1 C 69 18 125/71 99
11/16/23 11:00 11/16/23 11:00 11/16/23 11:00 11/16/23 11:00 11/16/23 11:00
I&O
11/15/23 11/16/23 11/17/23
06:59 06:59 06:59
Intake Total 480 / 480 1620 / 1620
Output Total 850 / 850 1025 / 1025
Balance -370 / -370 595 / 595
Review of Systems
-
All other systems: Reviewed and negative
Physical Exam
-
General: Well Developed, Well Nourished, No Apparent Distress, Comfortable and Conversant; Negative Respiratory Distress
HEENT: Normocephalic, Atraumatic, Nose Appears Normal and Ears Appear Normal; Negative Oxygen
Respiratory: Clear to Auscultation and Non Labored Respirations; Negative Accessory Resp Muscle Use
Cardiac: Regular Rhythm and S1/S2
GI: Soft, Nontender, Nondistended and Normal Bowel Sounds
Skin: Warm and Dry
Neuro: Awake, Alert, Oriented and AO x 3
Psych: Calm and Intact Judgement/Insight
Data Reviewed
-
Labs: Labs Reviewed by me
[2023-11-16 13:00] VITALS: BP 130/82
--- NOTE | 2023-11-16 14:21 | CM ---
MD entered order for discharge.
SPoke with Elva and patient in room. will drive him home.
Pt said he is ready for discharge.
He said he will resume his out pt PT at [facility].He will set up .
PLAN Home no needs
--- NOTE | 2023-11-16 14:50 | PTCARENOTE ---
Reviewed discharge instructions with patient and . Both verbalize understanding of discharge instructions. IV and tele removed. Patient left via wheelchair with staff escort and .
--- NOTE | 2023-11-16 15:08 | W.DCSUMMARY ---
Discharge Summary
Discharge Data
Date of Admission: 11/14/23
Date of Discharge: 11/16/23
-
Pending Results: No
Hospital Course
Principal Diagnosis:
Acute on chronic heart failure with reduced ejection fraction
Chronic Diagnoses:�
Paroxysmal atrial fibrillation, status post cardioversion 10/24/2023.
Hypertension
Hyperlipidemia
Iron deficiency anemia, on Ferrous sulfate
History of chronic obstructive pulmonary disease
Benign prostate hypertrophy, on Flomax
Consultations:�
Cardiology
Procedures:�
None
Clinical course:�
This is a 83 year old male with past medical history as stated above, who presented with shortness of breath and dyspnea on exertion for 10 days prior to admission. He also noted leg swelling, but denied to weight gain. He had been compliant with
Lasix.
Problem 1:
Acute on chronic heart failure with reduced ejection fraction.
His BNP was at 8000 on admission, but his CXR was unrevealing.
He was treated with IV Lasix 40 mg daily while in the hospital, and he can continue with oral Lasix 40 mg daily following discharge.
His Echo showed Mid to distal anterior and anteroseptal hypokinesis, EF 30-35%, Severe mitral regurgitation.
He was started with low dose Toprol at 12.5 for both his heart failure and blood pressure control, which he can continue going forward.
As for the rest of his medical problems, they were stable during his hospital stay.
Discharge Plan
-
Patient Disposition: Home with Home Care
Discharge Diagnosis/Procedures: acute on chronic heart failure with preserved ejection fraction
Condition: Fair
Diet: As tolerated, Low Fat, Low Cholesterol, Low Sodium and Restrict fluids to 48 oz
Activity: As tolerated
Driving Restrictions: As prior to admission
Referrals:
Mo Lopez MD [Family Provider] - in less than 1 week
Samantha Traylor PA-C [Specified Professional Personl] - 11/23/23 9:20 am (You have a cardiology follow up appointment at the [place] office. Please call with questions. )
Additional Discharge Medication Instructions: You were started with low dose Toprol at 12.5 mg daily, continue going forward.
You can continue with Symbicort in place of your prior to admission Breo
Prescriptions:
New
metoprolol succinate 25 mg Tablet Extended Release 24 Hr
12.5 mg PO DAILY Qty: 30 0RF
budesonide-formoterol [Symbicort] 160-4.5 mcg/actuation HFA aerosol inhaler
2 inh inhalation Q12H Qty: 10.2 0RF
Continued
tamsulosin 0.4 MG capsule
0.4 mg PO DAILY@1000
Patient Comments:
atorvastatin 40 MG tablet
40 mg PO DAILY
levalbuterol tartrate 45 mcg/actuation Hfa Aerosol Inhaler
1 puff INHALATION R Q6HPRN PRN (Reason: sob/wheezing)
Eliquis 5 MG tablet
5 mg PO BID Qty: 180 5RF
acetaminophen 325 mg Tablet
650 mg PO DAILYPRN PRN (Reason: mild pain)
vitamin B complex Tablet Extended Release
1 tab PO DAILY
pyridoxine (vitamin B6) 25 mg Tablet
25 mg PO DAILY
therapeutic multivitamin Tablet
1 tab PO DAILY
fexofenadine 180 mg Tablet
180 mg PO DAILY@1000
ascorbic acid (vitamin C) [Vitamin C] 500 mg Tablet
500 mg PO DAILY
olopatadine [Pataday Twice Daily Relief] 0.1 % Drops
1 drp BOTH EYES DAILYPRN PRN (Reason: itchy eyes)
vitamin E 268 mg (400 unit) Capsule
268 mg PO DAILY
Glucosamine Chondroitin 550-30-1 mg Capsule
1 cap PO BID
amiodarone 200 mg tablet
200 mg PO DAILY 30 Days Qty: 30 5RF
furosemide 40 mg tablet
40 mg PO DAILY
ferrous sulfate [iron] 325 mg (65 mg iron) tablet
325 mg PO HS
guaifenesin 600 mg tablet extended release 12hr
1,200 mg PO Q12 PRN (Reason: congestion)
Discontinued
fluticasone furoate-vilanterol [Breo Ellipta] 200-25 mcg/dose blister with device
1 inh INHALATION R DAILY
Discharge Orders:
Discharge Patient (As Directed); Ordered 11/16/23
Ordered By: Lawanda Pride
Discharge Date and Time
Discharge Date/Time: 11/16/23 14:21
== END 2023-11-16 14:21 | disposition home or self-care (01) | DRG 291 ==
LOC: 4 EAST ACU 17:51
PROVIDERS: Registered Nurse; Student in an Organized Health Care Education/Training Program; ADMITTING PHYSICIAN Internal Medicine; CONSULT PHYSICIAN Internal Medicine Cardiovascular Disease; EMERGENCY PHYSICIAN Emergency Medicine; FAMILY PHYSICIAN Family Medicine
DX: I11.0 Hypertensive heart disease with heart failure (principal); I50.33 Acute on chronic diastolic (congestive) heart failure; I48.19 Other persistent atrial fibrillation; E87.6 Hypokalemia; D50.9 Iron deficiency anemia, unspecified; N40.0 Benign prostatic hyperplasia without lower urinary tract symptoms; J44.9 Chronic obstructive pulmonary disease, unspecified; E78.00 Pure hypercholesterolemia, unspecified; I34.0 Nonrheumatic mitral (valve) insufficiency; D72.829 Elevated white blood cell count, unspecified; T50.2X5A Adverse effect of carbonic-anhydrase inhibitors, benzothiadiazides and other diuretics, initial encounter; Y92.9 Unspecified place or not applicable; Z95.0 Presence of cardiac pacemaker; Z87.891 Personal history of nicotine dependence; Z79.51 Long term (current) use of inhaled steroids; Z79.01 Long term (current) use of anticoagulants; Z90.81 Acquired absence of spleen; Z88.5 Allergy status to narcotic agent; Z88.0 Allergy status to penicillin; Z91.018 Allergy to other foods; Z11.52 Encounter for screening for COVID-19; Z86.79 Personal history of other diseases of the circulatory system; Z87.19 Personal history of other diseases of the digestive system; Z90.411 Acquired partial absence of pancreas; Z91.041 Radiographic dye allergy status
CPT/HCPCS: 71046; 80048; 80053; 80061; 82248; 83735; 83880; 84443; 85025; 85027; 87502; 87811; 93005; 93306; 94640; 97161; 99285; Q9950

== ENCOUNTER 2023-12-01 06:35 | Day surgery (SDC) | payer OTHER, SELFPAY ==
[2023-12-01] VITALS (13 sets, daily range): BP systolic 135–146; BP diastolic 69–86; BMI 29.1
[2023-12-01] MEDS: LOW STRENGTH ASPIRIN 324 MG PO (07:26)
[2023-12-01] MEDS: NSS 200 ML IV (07:30)
--- NOTE | 2023-12-01 09:36 | ITS.CL.CATH ---
[employer] S[employer] - Catheterization
Cardiac Catheterization
Procedure Report:
RIGHT AND LEFT HEART STUDY
Date of Procedure: December 01, 2023
Referring: Dr. Sherri Reyes
PROCEDURES:
1. Right heart catheterization
2. Left heart catheterization with coronary and single-plane left ventriculography
INDICATION: New cardiomyopathy and exertional dyspnea with atrial fibrillation. Recent admission for GI bleeding and negative GI workup
ACCESS: Right radial artery, 6 Persian sheath in right common femoral vein, 6 Persian sheath. Access was obtained with ultrasound-guided
HEMODYNAMICS : mmHg
RA (m) : 14
RV (s/d, m) : 43/9, 16
PA (s/d, m) : 41/16, 29
PCWP (m) : 24
AO (s/d, m) : 152/76, 107
LV (s/d) : 148/20
LVEDP : 27
Estimated Ritika Cardiac Output: 5.2 L / min and Cardiac Index: 2.7 L/ min / m-2
Systemic vascular resistance: 17.9 Wood units or 1431 [id number](-5)
Pulmonary vascular resistance: 0.96 Wood units or 77 [id number]-go(-5)
CORONARY FINDINGS :
Dominance: Right
LEFT MAIN: Large-caliber with very mild distal tapering
LEFT ANTERIOR DESCENDING: The LAD arises normally from the left main and runs in the anterior interventricular groove. The LAD approaches but does not wraparound the apex. Minor irregularities are noted.
CIRCUMFLEX: The circumflex is a large caliber nondominant vessel supplying 2 sizable obtuse marginal branches. Minor luminal irregularities are noted with no hemodynamically significant obstructive stent
RIGHT CORONARY ARTERY: The right coronary artery is a large-caliber dominant vessel that has minor luminal irregularities. The mid RCA just beyond a small RV marginal branch has a 20-30% stenosis. The PDA is large and widely patent. The
posterolateral branch is a small caliber vessel that is patent
VENTRICULOGRAPHY: Left ventriculography was performed in an TUCKER projection. The digital single-plane left ventricular ejection fraction is visually estimated at 35% with global hypokinesis. There is +2 mitral regurgitation noted to a dilated left
atrium
RADIATION SUMMARY: Fluoro Time (min): 9.4, Dose (mGy): 384, DAP (Gy.cm2) : 37
CONCLUSIONS
1. Nonobstructive coronary disease
2. Normal right ventricular filling pressures and mildly elevated left ventricular filling pressures. I do not believe pulmonary capillary wedge pressure was true tracing and pulmonary artery diastolic pressures measured 16 mmHg
RECOMMENDATIONS
1. Continued guideline directed medical therapy for nonischemic cardiomyopathy
2. Transthoracic echocardiogram was interpreted as severe mitral regurgitation. Left ventriculography was more suggestive of mild or more likely moderate mitral regurgitation. I determining severity and etiology of mitral regurgitation may impact
treatment strategy and we will therefore schedule a transesophageal echocardiogram with Dr. Reyes in the next 1 to 2 weeks. We canceled the EP evaluation with Dr. Lopez until the RADHA is completed
Copy to: Dr. Sherri Reyes
== END 2023-12-01 12:15 | disposition home or self-care (01) ==
LOC: CATH 06:35
PROVIDERS: ATTENDING PHYSICIAN Internal Medicine Interventional Cardiology; FAMILY PHYSICIAN Family Medicine; OTHER PHYSICIAN Internal Medicine Cardiovascular Disease
DX: I25.10 Atherosclerotic heart disease of native coronary artery without angina pectoris (principal); I42.9 Cardiomyopathy, unspecified; R06.09 Other forms of dyspnea; I48.0 Paroxysmal atrial fibrillation; I11.0 Hypertensive heart disease with heart failure; I50.22 Chronic systolic (congestive) heart failure; E78.00 Pure hypercholesterolemia, unspecified; I35.0 Nonrheumatic aortic (valve) stenosis; I34.1 Nonrheumatic mitral (valve) prolapse; R73.03 Prediabetes; Z95.0 Presence of cardiac pacemaker; Z87.891 Personal history of nicotine dependence; Z79.01 Long term (current) use of anticoagulants
CPT/HCPCS: 93460; C1894; Q9967

== ENCOUNTER 2023-12-09 07:26 | Day surgery (SDC) | payer OTHER, SELFPAY | END 2023-12-09 09:45 | disposition home or self-care (01) | LOC: CATH 07:26 | PROVIDERS: ATTENDING PHYSICIAN Internal Medicine Cardiovascular Disease; FAMILY PHYSICIAN Family Medicine; OTHER PHYSICIAN Internal Medicine Cardiovascular Disease | DX: I08.3 Combined rheumatic disorders of mitral, aortic and tricuspid valves (principal); I11.0 Hypertensive heart disease with heart failure; I50.22 Chronic systolic (congestive) heart failure; E78.00 Pure hypercholesterolemia, unspecified; I48.0 Paroxysmal atrial fibrillation; R73.03 Prediabetes; Z95.0 Presence of cardiac pacemaker; Z79.01 Long term (current) use of anticoagulants; Z87.891 Personal history of nicotine dependence | CPT/HCPCS: 93312; 93320; 93325 ==

== ENCOUNTER → 2023-12-16 10:22 | Outpatient (REF) | payer OTHER, SELFPAY | LOC: RAD 10:22 | PROVIDERS: ATTENDING PHYSICIAN Surgery Vascular Surgery; FAMILY PHYSICIAN Family Medicine | DX: I71.40 Abdominal aortic aneurysm, without rupture, unspecified (principal) | CPT/HCPCS: 76770 ==

== ENCOUNTER → 2023-12-26 11:28 | Outpatient (REF) | payer OTHER, SELFPAY | LOC: RAD 11:28 | PROVIDERS: ATTENDING PHYSICIAN Physician Assistant; FAMILY PHYSICIAN Family Medicine | DX: I71.40 Abdominal aortic aneurysm, without rupture, unspecified (principal) | CPT/HCPCS: 74176 ==

== ENCOUNTER 2024-02-09 08:30 | Day surgery (SDC) | payer OTHER, SELFPAY ==
[2024-02-09] VITALS (11 sets, daily range): BP systolic 108–146; BP diastolic 79–90; BMI 26.5
[2024-02-09 08:56] LABS: Hematocrit 44.8 % (39.0-52.0); Hemoglobin 15.4 g/dL (13.0-18.0); Mean Corp Hgb Conc. 34.4 g/dL (33.0-37.0); Mean Corpuscular Hgb 31.9 pg (27.0-31.0); Mean Corpuscular Volume 92.8 fL (80.0-94.0); Mean Platelet Volume 10.2 fL (7.4-10.4); Platelet Count 375 10^3/uL (130-400); Red Blood Cell Count 4.83 10^6/uL (4.70-6.10); Red Cell Dist. Width 17.2 % (11.5-14.5); White Blood Cell Count 6.4 10^3/uL (4.8-10.8)
[2024-02-09 09:04] LABS: ALT (SGPT) 23 U/L (0-50); AST (SGOT) 30 U/L (17-59); Albumin 4.3 g/dl (3.5-5.0); Alkaline Phosphatase 118 U/L (38-126); Blood Urea Nitrogen 21 mg/dl (9-20); Calcium 9.7 mg/dl (8.4-10.2); Carbon Dioxide 28 mmol/L (22-30); Chloride 102 mmol/L (98-107); Glucose 197 mg/dl (70-99); Potassium 4.6 mmol/L (3.5-5.1); Sodium 141 mmol/L (135-145); Total Bilirubin 0.9 mg/dl (0.2-1.3); Total Protein 7.3 g/dl (6.3-8.2); eGFR 49.87
[2024-02-09 09:09] LABS: INR 1.25; PT 15.7 Sec (11.4-14.6)
[2024-02-09 11:28] LABS: ACT-LR - POC 285 Seconds (116-155)
[2024-02-09 11:59] LABS: ACT-LR - POC 313 Seconds (116-155)
--- NOTE | 2024-02-09 12:04 | ITS.CL.ABL ---
[employer] - Ablation
Ablation
Procedure Report:
ELECTROPHYSIOLOGY ABLATION STUDY
DATE:: February 09, 2024 REFERRING: Dr. Sherri Reyes
INDICATION: Persistent and drug refractory supraventricular tachycardia in the form of atrial fibrillation which is symptomatic.
HISTORY: See H and P. As above
ANTIARRHYTHMIC DRUG: Amiodarone
PRE-PROCEDURE RADHA: No intracardiac thrombus on intracardiac ultrasound
PRESENTING RHYTHM: Atrial fibrillation
'TIME-OUT': called and confirmed.
SEDATION/ANESTHESIA: provided via the anesthesia department using general anesthesia (LMA).
INTRAVENOUS/ARTERIAL ACCESS:
Right femoral venous - 10 Fr, 8Fr
Ultrasound guidance for bilateral femoral vein access was utilized by me to obtain access with demonstration of normal anatomy
CHADS-VASC Score:
HAS-Bled Score
PROCEDURE:
1. A decapolar CS catheter was placed within the CS for mapping and pacing. This was also used as the reference catheter for the 3-D map. The patient's dual-chamber pacemaker was interrogated pre and post procedure and found to have stable and
acceptable lead parameters in the right atrial and right ventricular leads. Patient was programmed to DDDR 60 to 130 bpm post procedure given the patient's baseline Mobitz 1 type II AV block.
2. The intracardiac ultrasound catheter was positioned in the RA to identify the FO for targeting of transseptal puncture, assist in identification of the pulmonary vein ostia, monitoring pre and post ablation pulmonary vein flow velocities,
monitoring for 'bubble' formation during RF application as a sign of thermal injury, and to monitor for pericardial effusion during mapping and ablation procedure. Left atrial size, LV ejection fraction, and pulmonary vein flows were monitored
pre and post ablation procedure. The other valves were inspected and found to be free of significant regurgitation or stenosis.
3. Half of the calculated heparin bolus was administered prior to the first transeptal puncture. Transseptal puncture was performed to diagnose RA and LA pressure so that safety of LA mapping and ablation could be further assessed, and to access
the left atrium and pulmonary veins for mapping and ablation. This entailed advancing an 12 Welsh Contour sheath with dilator apparatus into the superior vena cava and withdrawing both (monitoring intracardiac ultrasound, fluoroscopy and tip
pressure) with the tip oriented toward the atrial septum. The fossa ovalis was engaged (indicated by sudden displacement of the sheath tip as well as tenting of the fossa seen on intracardiac ultrasound). Left atrial access required a pass with
the Brockenbrough needle extended. Left atrial catheter position was confirmed by pressure monitoring (RA mean pressure 8 mm Hg and LA mean presure 8 mm Hg), LA saturation (99%), as well as fluoroscopy. The sheath was advanced over the dilator
and positioned in the left atrium. The remainder of the calculated heparin bolus was administered and heparin was
infused to maintain ACT at 300 -350 seconds throughout the case.
4. RA pacing was performed via the proximal decapolar poles and LA pacing was performed via the distal decapolr poles.
5. A quadrapolar catheter was first positioned at the His position for His Bundle recording which was tagged via the 3-D Navex sytem, and then passed to the RVA for RV pacing and recording.
6. The ablation catheter was positioned through one of the transeptal seaths and a 20 pole ring mapping catheter was positioned through the second seath into the LA and then the ostia of the LIPV, LSPV, RSPV and the RIPV.
7. Next, a 3-D map was created using Navex. A 3-D reconstructed CT image was compared to the 3-D Navex map to assist in anatomic interpretation, mapping and ablation. The CT image and the NavX image were fused.
8. Although the patient was somewhat organized in V1 V2 on surface electrocardiogram intracardiac recordings demonstrated atrial fibrillation in the left atrium. Pulmonary vein isolation was performed with the PFA catheter and the left atrial
posterior wall was also isolated targeting any available substrate. The multipolar catheter was utilized for pre and post electroanatomic voltage mapping. Post cardioversion the patient's demonstrated entrance and exit block in 4 pulmonary veins
and the left atrial posterior wall approximately centimeter and a half below the inferior portion of the veins and up through the roof. The patient was noninducible for a tachyarrhythmia post procedure. A total of 74 lesions were given with the
pulse select catheter
9. Patient's device was programmed as above and a kffaiw-[id number] suture was placed in the right femoral vein after 40 mg of protamine was given.
TOTAL FLOURO TIME: 12.7 minutes 124 mGy
TOTAL RF DURATION: 0 minutes
REVERSAL OF HEPARIN: 40 mg of protamine, slow IV administration
COMPLICATIONS:
None
Intracardiac US shows no pericardial effusion post ablation.
SUMMARY:
Complex left atrial mapping and ablation.
Isolation of all 4 pulmonary veins and the posterior wall as above.
RECOMMENDATIONS:
1. Admit to monitored bed.
2. Resume anticoagulation
3. Lower amiodarone to 100 mg daily
4. Consider same-day discharge
Copy to: Dr. Sherri Reyes
[2024-02-09] MEDS: FLOMAX 0.400000000000000022 MG PO (14:42)
--- NOTE | 2024-02-09 17:00 | W.PN.UPDATE ---
Addendum entered and electronically signed by Fabián Lopez MD 02/09/24 17:08:
Inspected the wound personally at 4 PM prior to ambulation and at 5 PM after ambulation with a clean dry and intact dressing in the right groin without hematoma or bruit. Patient feels well and I discussed post discharge care with patient and
at the bedside and my impression that he should do quite well at home. If he were to have any continued oozing I instructed them to place him back in bed with gentle 15 to 20-minute pressure at the right femoral venous access site. I also
mentioned that they could call the hospital calculating machine operator overnight if there is any issues and the office tomorrow as I am in the office if there are any issues. They expressed understanding and were comfortable being discharged today.
Original Note:
Update Note
Progress Note Update
83 yo WM s/p PVI (same day). He denies cp, sob, van diet, voiding, amb w/o dizziness. EKG AsVpaced, R fem site with small ooze/HT earlier, manual pressure applied, soft and c/d/i. He will resume OAC tonight at 9pm. We will decrease Amiodarone to
100mg daily. Activity restrictions reviewed. He will f/u DCA 3 mo. He is for d/c home after 5p as long as groin stable. Dr. Lopez at bedside to assess groin and discuss procedure with pt/.
SUMMARY:
Complex left atrial mapping and ablation.
Isolation of all 4 pulmonary veins and the posterior wall as above.
RECOMMENDATIONS:
1. Admit to monitored bed.
2. Resume anticoagulation
3. Lower amiodarone to 100 mg daily
4. Consider same-day discharge
Copy to: Dr. Sherri Reyes
== END 2024-02-09 17:23 | disposition home or self-care (01) ==
LOC: CATH 08:30
PROVIDERS: ATTENDING PHYSICIAN Internal Medicine Cardiovascular Disease; OTHER PHYSICIAN Internal Medicine Cardiovascular Disease
DX: I48.19 Other persistent atrial fibrillation (principal); Z95.0 Presence of cardiac pacemaker; I49.5 Sick sinus syndrome; Z79.01 Long term (current) use of anticoagulants; I25.10 Atherosclerotic heart disease of native coronary artery without angina pectoris; I10 Essential (primary) hypertension; I27.20 Pulmonary hypertension, unspecified; R73.03 Prediabetes
CPT/HCPCS: C1769; C1733; C1759; C1894; C1892; C1732; 76937; 80053; 85027; 85347; 85610; 86850; 86900; 86901; 93005; 93656

== ENCOUNTER → 2024-02-17 11:53 | Outpatient (REF) | payer OTHER, SELFPAY | LOC: RAD 11:53 | PROVIDERS: ATTENDING PHYSICIAN Orthopaedic Surgery Hand Surgery; FAMILY PHYSICIAN Family Medicine | DX: M25.511 Pain in right shoulder (principal) | CPT/HCPCS: 73200 ==

== ENCOUNTER 2024-04-06 11:39 | Emergency (ER) | payer OTHER, SELFPAY ==
[2024-04-06 11:44] VITALS: BP 165/80
[2024-04-06 12:25] VITALS: BMI 29.5
[2024-04-06 12:50] VITALS: BP 161/74
[2024-04-06 13:00] VITALS: BP 162/70
[2024-04-06 13:02] LABS: % Basophils 0.4 % (0-2); % Eosinophils 3.6 % (0-6); % Immature Granulocytes 0.2 % (0-0.5); % Lymphocytes 17.2 % (20.5-51.1); % Monocytes 13.5 % (1.7-9.3); % Neutrophils 65.1 % (42.2-75.2); Absolute Eosinophils 0.3 10^3/uL (0-0.7); Absolute Lymphocytes 1.6 10^3/uL (1.2-3.4); Absolute Monocytes 1.2 10^3/uL (0.1-0.6); Hematocrit 40.4 % (39.0-52.0); Mean Corp Hgb Conc. 34.7 g/dL (33.0-37.0); Mean Corpuscular Hgb 33.8 pg (27.0-31.0); Mean Corpuscular Volume 97.6 fL (80.0-94.0); Mean Platelet Volume 10.2 fL (7.4-10.4); Nucleated Red Blood Cells % 0 % (-); Platelet Count 317 10^3/uL (130-400); Red Blood Cell Count 4.14 10^6/uL (4.70-6.10); Red Cell Dist. Width 15.8 % (11.5-14.5); White Blood Cell Count 9.2 10^3/uL (4.8-10.8)
[2024-04-06 13:11] LABS: ALT (SGPT) 15 U/L (0-50); AST (SGOT) 28 U/L (17-59); Albumin 3.8 g/dl (3.5-5.0); Alkaline Phosphatase 89 U/L (38-126); Blood Urea Nitrogen 17 mg/dl (9-20); Calcium 9.3 mg/dl (8.4-10.2); Carbon Dioxide 31 mmol/L (22-30); Chloride 103 mmol/L (98-107); Estimated Creatinine Clearance 57 ml/min; Glucose 113 mg/dl (70-99); Potassium 3.9 mmol/L (3.5-5.1); Sodium 138 mmol/L (135-145); Total Bilirubin 0.9 mg/dl (0.2-1.3); Total Protein 6.3 g/dl (6.3-8.2); eGFR > 60.00
--- NOTE | 2024-04-06 13:23 | ED.GENMED ---
History of Present Illness
General
Chief Complaint: Dizziness
Time Seen by Provider: 04/06/24 13:05
History of Present Illness
History of Present Illness:
83-year-old male presents the emergency department for evaluation of acute onset of dizziness that began upon awakening today. He felt unsteady when attempting to ambulate but did not fall. He laid back down and the symptoms improved. Symptoms
recurred shortly thereafter later in the morning however have again resolved, on arrival to the emergency department he states he has no further symptoms. Denies any vision changes. Describes the sensation as a profound lightheadedness but denies
any room spinning type vertigo. No associated chest pain, nausea, vomiting, photophobia, or headache. Has never experienced similar symptoms. Denies any recent URI symptoms or fevers.
Past History
Past History
ED Past Medical History: Arrthythmia (Atrial fibrillation), HTN, Hypercholesterolemia and Other (Prostatic hypertrophy)
ED Past Surgical History: Orthopedic
Social History
Tobacco: Former smoker
Drug: None
Review of Systems
Review of Systems
Allergies reviewed?: Yes
All Other Systems: ROS reviewed and negative except as documented in HPI and ROS
Phy Exam
Physical Exam
Physical Exam:
GEN: Well appearing, NAD, WDWN
HEENT: Oral mucosa moist, no scleral icterus, no nasal congestion
Cardiac: Regular rate
Lung: No respiratory distress, no tachypnea
MSK: No gross deformity or injuries
Skin: Good color, no pallor or jaundice, no rashes
Neuro: AO x3; CN II-XII grossly intact. BUE strength 5/5 in all huffman, sensation intact and symmetric. BLE strength 5/5 in all huffman, sensation intact and symmetric. Gait is steady. No nystagmus elicited with head tilt
Psych: Calm, cooperative
Course
Orders/Labs/Results
Orders:
Orders
04/06/24 12:28
Electrocardiogram (*1) Urgent
Reason for Study: Vertigo / Dizzy
EKG- Treatment ONCE
04/06/24 12:50
CMP [Comprehensive Metabolic Panel] Urgent
Complete Blood Count/With Diff Urgent
04/06/24 13:23
CT Head W/o Iv Contrast Urgent
Comment:
Reason For Exam: dizziness
Abnormal Lab Results
04/06/24
12:50
RBC 4.14 L 10^6/uL
(4.70-6.10)
MCV 97.6 H fL
(80.0-94.0)
MCH 33.8 H pg
(27.0-31.0)
RDW 15.8 H %
(11.5-14.5)
Absolute Monos (auto) 1.2 H 10^3/uL
(0.1-0.6)
Lymphocytes % 17.2 L %
(20.5-51.1)
Monocytes % 13.5 H %
(1.7-9.3)
Carbon Dioxide 31 H mmol/L
(22-30)
Glucose 113 H mg/dl
(70-99)
04/06/24 12:50
04/06/24 12:50
Vital Signs
Initial and Last Documented VS:
Initial Vital Signs
Temp Pulse Resp BP Pulse Ox
97.6 F 69 16 165/80 98
04/06/24 11:44 04/06/24 11:44 04/06/24 11:44 04/06/24 11:44 04/06/24 11:44
Last Documented Vital Signs
Temp Pulse Resp BP Pulse Ox
97.6 F 63 24 162/70 98
04/06/24 11:44 04/06/24 15:00 04/06/24 15:00 04/06/24 13:00 04/06/24 15:00
MDM/Problems Addressed
MDM/Problems Addressed:
Patient with an unremarkable neurologic exam in the emergency department and I am unable to elicit symptoms or nystagmus. Device interrogation was performed showing no evidence of cardiac dysrhythmia or device problems. Labs are reassuring and CT
of the head shows no acute abnormalities. I suspect this was acute benign vertigo, it is certainly reassuring that he has no further symptoms and is able to ambulate in the emergency department without difficulties. Referral written for outpatient
vestibular therapy however the patient likely will not require this.
*Critical Care Note
Total Time (30-74mins, 75-104mins- exclusive of procedures): Not Applicable
ED Attending Note
-
Portions of this chart may have been created with voice recognition software.� Occasional wrong word or��sound alike� substitutions may have occurred due to the inherent limitations of voice recognition software.
Discharge Plan
Departure
Patient Disposition: Home (Routine Discharge)
Date of Disposition: 04/06/24
Time of Disposition: 15:08
Patient with high blood pressure during this ER visit?: No
Discharge Problem:
Benign paroxysmal positional vertigo
Instructions: Vertigo (a Type of Dizziness) (DC)
Prescriptions:
No Action
tamsulosin 0.4 MG capsule
0.4 mg PO DAILY@1000
Patient Comments:
atorvastatin 40 MG tablet
40 mg PO DAILY
levalbuterol tartrate 45 mcg/actuation Hfa Aerosol Inhaler
1 puff INHALATION BID
Eliquis 5 MG tablet
5 mg PO BID Qty: 180 5RF
vitamin B complex Tablet Extended Release
1 tab PO DAILY
pyridoxine (vitamin B6) 25 mg Tablet
25 mg PO DAILY
therapeutic multivitamin Tablet
1 tab PO DAILY
fexofenadine 180 mg Tablet
180 mg PO DAILY@1000
ascorbic acid (vitamin C) [Vitamin C] 500 mg Tablet
1,000 mg PO DAILY
furosemide 40 mg tablet
40 mg PO DAILY
ferrous sulfate [iron] 325 mg (65 mg iron) tablet
325 mg PO HS
carvedilol 3.125 mg Tablet
3.125 mg PO BID
Entresto 24-26 mg Tablet
1 tab PO BID
budesonide-formoterol [Symbicort] 160-4.5 mcg/actuation Hfa Aerosol Inhaler
2 puff INHALATION BID
glucosamine-chondroitin 1,500-1,200 mg/30 mL Liquid
30 ml PO BID
vitamin E (dl, acetate) 180 mg (400 unit) Capsule
360 mg PO DAILY
olopatadine 0.1 % Drops
1 drp OPHTHALMIC (EYE) PRN PRN (Reason: dry eye)
guaifenesin 1,200 mg Tablet Extended Release 12hr
1,200 mg PO PRN PRN (Reason: congestion)
amiodarone 200 mg Tablet
100 mg PO DAILY Qty: 0 0RF
Referrals:
Mo Lopez MD [Family Provider] -
Interventions
Interventions:
*Risk Screen - Suicide Last Done: 04/06/24 11:44
*General Assessment Last Done: 04/06/24 11:44
*Neglect/Abuse Screening Last Done: 04/06/24 11:44
ED- Fall Risk Assessment Last Done: 04/06/24 12:26
*ED COVID-19 Vaccine History Last Done: 04/06/24 12:26
*Nursing Disposition Last Done: 04/06/24 15:20
ED- Neurological Assessment Last Done: 04/06/24 12:26
ED- Cardiac Assessment Last Done: 04/06/24 12:54
Discharge Date and Time
Discharge Date/Time: 04/06/24 15:21
Print Language: BENGALI
== END 2024-04-06 15:21 | disposition home or self-care (01) ==
LOC: EMR 11:39
PROVIDERS: Emergency Medicine; EMERGENCY PHYSICIAN Emergency Medicine; FAMILY PHYSICIAN Family Medicine
DX: H81.10 Benign paroxysmal vertigo, unspecified ear (principal); I10 Essential (primary) hypertension; E78.00 Pure hypercholesterolemia, unspecified; I48.91 Unspecified atrial fibrillation; N40.0 Benign prostatic hyperplasia without lower urinary tract symptoms; Z95.0 Presence of cardiac pacemaker; Z87.891 Personal history of nicotine dependence; Z79.01 Long term (current) use of anticoagulants; Z91.041 Radiographic dye allergy status; Z88.5 Allergy status to narcotic agent; Z88.0 Allergy status to penicillin; Z88.8 Allergy status to other drugs, medicaments and biological substances; Z91.018 Allergy to other foods
CPT/HCPCS: 99285; 93288; 70450; 80053; 85025; 93005

== ENCOUNTER 2024-09-25 06:23 | Day surgery (SDC) | payer OTHER, SELFPAY ==
[2024-09-10 13:50] VITALS: BMI 29.0
[2024-09-10 14:30] LABS: Hematocrit 41.5 % (39.0-52.0); Hemoglobin 13.8 g/dL (13.0-18.0); Mean Corp Hgb Conc. 33.3 g/dL (33.0-37.0); Mean Corpuscular Hgb 32.7 pg (27.0-31.0); Mean Corpuscular Volume 98.3 fL (80.0-94.0); Mean Platelet Volume 10.5 fL (7.4-10.4); Platelet Count 352 10^3/uL (130-400); Red Blood Cell Count 4.22 10^6/uL (4.70-6.10); Red Cell Dist. Width 14.1 % (11.5-14.5); White Blood Cell Count 10.1 10^3/uL (4.8-10.8)
[2024-09-10 14:58] LABS: ALT (SGPT) 16 U/L (0-50); AST (SGOT) 25 U/L (17-59); Albumin 3.9 g/dl (3.5-5.0); Alkaline Phosphatase 103 U/L (38-126); Blood Urea Nitrogen 13 mg/dl (9-20); Calcium 9.3 mg/dl (8.4-10.2); Carbon Dioxide 30 mmol/L (22-30); Chloride 101 mmol/L (98-107); Estimated Creatinine Clearance 51 ml/min; Glucose 90 mg/dl (70-99); Potassium 4.1 mmol/L (3.5-5.1); Sodium 139 mmol/L (135-145); Total Bilirubin 0.9 mg/dl (0.2-1.3); Total Protein 6.6 g/dl (6.3-8.2); eGFR > 60.00
[2024-09-10 15:17] LABS: Glycohemoglobin (HgbA1c) 5.7 % (4.0-5.6)
[2024-09-21 14:38] VITALS: BMI 29.0
[2024-09-25] VITALS (9 sets, daily range): BP systolic 138–164; BP diastolic 67–77; BMI 29.0
[2024-09-25] MEDS: TYLENOL 1000 MG PO (09:09)
[2024-09-25] MEDS: NORMOSOL-R/PLASMALYTE-A 1000 IV (09:10)
[2024-09-25] MEDS: CELEBREX 200 MG PO (09:10)
--- NOTE | 2024-09-25 10:16 | W.DS.TRANS ---
DC Summary - [employer]
-
Discharge Instructions:
Sleep Apnea Risk Intermediate
Discharge Diagnosis/Procedures R Reverse [employer]SA Dr. Grimaldo 09/25/24
Diet As tolerated
Activity Other activity
Additional Activity sling to operative extremity. May do range of
motion elbow, wrist and hand. No weight bearing
to operative arm
Driving Restrictions Not until seen by your Dr
Wound Care maintain dressing until first follow-up visit
Instructions:
Stand-Alone Forms: [employer] Total Shoulder D/C Inst.
Changes to Home Medications: Yes
Discharge Medications:
DC Medications w/original date entered in [employer]
tamsulosin 0.4 mg capsule 0.4 mg PO DAILY@1000 08/16/12
atorvastatin 40 mg tablet 40 mg PO DAILY 08/02/18
levalbuterol tartrate 45 mcg/actuation aerosol inhaler 1 puff inhalation BID 11/01/22
ascorbic acid (vitamin C) 500 mg tablet (Vitamin C) 1,000 mg PO DAILY 07/31/23
fexofenadine 180 mg tablet 180 mg PO DAILY@1000 07/31/23
pyridoxine (vitamin B6) 25 mg tablet 25 mg PO DAILY 07/31/23
therapeutic multivitamin 1 tab PO DAILY 07/31/23
vitamin B complex 1 tab PO DAILY 07/31/23
ferrous sulfate 325 mg (65 mg iron) tablet (iron) 325 mg PO HS 11/14/23
furosemide 40 mg tablet 40 mg PO DAILY 11/14/23
carvedilol 3.125 mg tablet 6.25 mg PO BID 12/01/23
budesonide-formoterol HFA 160 mcg-4.5 mcg/actuation aerosol inhaler (Symbicort) 2 puff inhalation BID 12/09/23
glucosamine-chondroitin 1,500 mg -1,200 mg/30 mL oral liquid 30 ml PO BID 02/09/24
olopatadine 0.1 % eye drops 1 drp ophthalmic (eye) PRN PRN dry eye 02/09/24
vitamin E (dl, acetate) 180 mg (400 unit) capsule 360 mg PO DAILY 02/09/24
sacubitril 49 mg-valsartan 51 mg tablet (Entresto) 1 tab PO BID 09/07/24
dexamethasone 4 mg tablet 4 mg PO BID inflammation #6 tabs 09/10/24
doxycycline hyclate 100 mg capsule 100 mg PO BID infection prevention #10 caps 09/10/24
famotidine 20 mg tablet 20 mg PO HS GI prophylaxis #30 tabs 09/10/24
gabapentin 300 mg capsule 300 mg PO HS sleep/pain #10 caps 09/10/24
mupirocin 2 % topical ointment 1 applic topical BID infection prevention #1 tube 09/10/24
ondansetron 4 mg disintegrating tablet 4 mg PO Q6H PRN n/v #20 tabs 09/10/24
oxycodone 5 mg tablet 5 mg PO Q6H PRN 1 tab moderate pain, 2 tabs severe pain #30 tabs 09/10/24
Saccharomyces boulardii 250 mg capsule (Florastor) 250 mg PO BID #1 cap 09/25/24
acetaminophen 325 mg tablet (Tylenol) 650 mg (2 x 325 mg) PO QID #1 tab 09/25/24
apixaban 5 mg tablet (Eliquis) 2.5 mg (1/2 x 5 mg) PO BID Blood clot prevention/tx #180 tabs 09/25/24
docusate sodium 100 mg capsule (Colace) 100 mg PO BID stool softner #1 cap 09/25/24
magnesium hydroxide 400 mg/5 mL oral suspension (Milk of Magnesia) 30 ml PO HS PRN Constipation #1 mL 09/25/24
sennosides 8.6 mg tablet (Senokot) 17.2 mg (2 x 8.6 mg) PO BID laxative #2 tabs 09/25/24
Home Medication Changes
dexamethasone 4 mg tablet 4 mg PO BID inflammation #6 tabs 09/10/24
doxycycline hyclate 100 mg capsule 100 mg PO BID infection prevention #10 caps 09/10/24
famotidine 20 mg tablet 20 mg PO HS GI prophylaxis #30 tabs 09/10/24
gabapentin 300 mg capsule 300 mg PO HS sleep/pain #10 caps 09/10/24
mupirocin 2 % topical ointment 1 applic topical BID infection prevention #1 tube 09/10/24
ondansetron 4 mg disintegrating tablet 4 mg PO Q6H PRN n/v #20 tabs 09/10/24
oxycodone 5 mg tablet 5 mg PO Q6H PRN 1 tab moderate pain, 2 tabs severe pain #30 tabs 09/10/24
Saccharomyces boulardii 250 mg capsule (Florastor) 250 mg PO BID #1 cap 09/25/24
acetaminophen 325 mg tablet (Tylenol) 650 mg (2 x 325 mg) PO QID #1 tab 09/25/24
apixaban 5 mg tablet (Eliquis) 2.5 mg (1/2 x 5 mg) PO BID Blood clot prevention/tx #180 tabs 09/25/24
docusate sodium 100 mg capsule (Colace) 100 mg PO BID stool softner #1 cap 09/25/24
magnesium hydroxide 400 mg/5 mL oral suspension (Milk of Magnesia) 30 ml PO HS PRN Constipation #1 mL 09/25/24
sennosides 8.6 mg tablet (Senokot) 17.2 mg (2 x 8.6 mg) PO BID laxative #2 tabs 09/25/24
Pending Results: No
== END 2024-09-25 14:00 | disposition home or self-care (01) ==
LOC: SDS 06:23
PROVIDERS: ATTENDING PHYSICIAN Orthopaedic Surgery Hand Surgery; FAMILY PHYSICIAN Internal Medicine; OTHER PHYSICIAN Physician Assistant Medical; REFERRING PHYSICIAN Internal Medicine Cardiovascular Disease
PROC: 0RRJ00Z Replacement of Right Shoulder Joint with Reverse Ball and Socket Synthetic Substitute, Open Approach (ICD-10-PCS; 2024-09-25)
DX: M19.011 Primary osteoarthritis, right shoulder (principal); M75.101 Unspecified rotator cuff tear or rupture of right shoulder, not specified as traumatic; I48.0 Paroxysmal atrial fibrillation; E78.5 Hyperlipidemia, unspecified; I13.0 Hypertensive heart and chronic kidney disease with heart failure and stage 1 through stage 4 chronic kidney disease, or unspecified chronic kidney disease; N18.30 Chronic kidney disease, stage 3 unspecified; J44.9 Chronic obstructive pulmonary disease, unspecified; I34.1 Nonrheumatic mitral (valve) prolapse; Z87.891 Personal history of nicotine dependence
CPT/HCPCS: 23472; 36415; 73020; 80053; 83036; 85027; 87070; C1713; C1776

== ENCOUNTER 2024-11-12 06:35 | Day surgery (SDC) | payer OTHER, SELFPAY ==
[2024-11-12 07:27] VITALS: BMI 28.7
--- NOTE | 2024-11-12 12:27 | ITS.CL.CARDI ---
Outpatient Psychiatrist - Cardioversion
Cardioversion
Procedure Report:
Date of Procedure: 11/12/24
Procedure: Cardioversion
Indication: Symptomatic atrial fibrillation
Performing Physician: Sherri Reyes DO [facility]
Anticoagulation: Eliquis
Technique: The patient was brought to the holding area. Limited device interrogation confirmed atrial fibrillation. Signed informed consent was obtained. A time out was called and performed. The patient was anesthetized by the anesthesia service.
Anticoagulation status was reviewed and appropriate. R2 pads were placed anteriorly and posteriorly. A 200 J synchronized biphasic shock restored normal sinus rhythm without significant bradycardia. Rhythm was confirmed by device interrogation and
twelve-lead EKG. There were no complications.
Conclusion: Uncomplicated cardioversion from atrial fibrillation to Atrial-sensed ventricular-paced rhythm
Recommendation: Routine post cardioversion care. Continue assistant terminal manager anticoagulation.
== END 2024-11-12 08:34 | disposition home or self-care (01) ==
LOC: CATH 06:35
PROVIDERS: ATTENDING PHYSICIAN Internal Medicine Cardiovascular Disease; FAMILY PHYSICIAN Internal Medicine; OTHER PHYSICIAN Internal Medicine Cardiovascular Disease
DX: I48.19 Other persistent atrial fibrillation (principal); Z79.01 Long term (current) use of anticoagulants; I48.91 Unspecified atrial fibrillation; I50.32 Chronic diastolic (congestive) heart failure; I49.5 Sick sinus syndrome; Z79.899 Other long term (current) drug therapy
CPT/HCPCS: 92960; 93005

== ENCOUNTER → 2025-01-01 11:17 | Outpatient (REF) | payer OTHER, SELFPAY | LOC: HWRCS 11:17 | PROVIDERS: ATTENDING PHYSICIAN Nurse Practitioner; FAMILY PHYSICIAN Internal Medicine | DX: I48.19 Other persistent atrial fibrillation (principal); I50.32 Chronic diastolic (congestive) heart failure; R07.89 Other chest pain; I34.0 Nonrheumatic mitral (valve) insufficiency | CPT/HCPCS: 93306 ==

== ENCOUNTER → 2025-01-04 09:18 | Outpatient (REF) | payer OTHER, SELFPAY | LOC: WDC 09:18 | PROVIDERS: ATTENDING PHYSICIAN Nurse Practitioner Family | DX: N64.4 Mastodynia (principal) | CPT/HCPCS: 76642; 77062; 77066 ==

== ENCOUNTER → 2025-01-07 11:05 | Outpatient (REF) | payer OTHER, SELFPAY | LOC: HWRCS 11:05 | PROVIDERS: ATTENDING PHYSICIAN Nurse Practitioner; FAMILY PHYSICIAN Internal Medicine | DX: I48.19 Other persistent atrial fibrillation (principal); I50.32 Chronic diastolic (congestive) heart failure; R07.89 Other chest pain; I34.0 Nonrheumatic mitral (valve) insufficiency | CPT/HCPCS: 78452; 93017; A9500; J2785 ==

== ENCOUNTER → 2025-01-25 09:26 | Day surgery (SDC) | payer OTHER, SELFPAY ==
--- NOTE | 2025-01-25 11:10 | ITS.CL.CARDI ---
Lead Machinist - Cardioversion
Cardioversion
Procedure Report:
Procedure: Direct current electrical cardioversion
Pre-operative diagnosis: Persistent atrial flutter
Post-operative diagnosis: Persistent atrial flutter status post DC cardioversion to sinus rhythm
Anesthesia: MAC
Attending Physician: hKoa Bui MD
Procedure Description: The patient was brought to the electrophysiology laboratory in the fasting state. Adherence to anticoagulation regimen was confirmed. Informed consent was obtained from the patient prior to the start of the procedure.
Electrodes were placed on the patient and connected to an external defibrillator. Monitoring of blood pressure, ECG tracings, and pulse oximetry was initiated. The pads were applied to the patient in the anterior and posterior positions. The patient
was sedated by the anesthesiologist. A 200 joule biphasic synchronized shock was delivered to the patient under MAC anesthesia. Sinus rhythm was successfully restored. The patient recovered uneventfully from MAC anesthesia. There were no immediate
post-procedure complications. The patient left the lab in good condition. The attending physician was present throughout the entire procedure.
Impression: Successful direct current cardioversion with pentecostalism of sinus rhythm after one 200 joule biphasic synchronized shock.
== END ==
LOC: CATH 09:26
PROVIDERS: ATTENDING PHYSICIAN Internal Medicine Cardiovascular Disease; FAMILY PHYSICIAN Internal Medicine
DX: I48.92 Unspecified atrial flutter (principal); I48.19 Other persistent atrial fibrillation; I11.0 Hypertensive heart disease with heart failure; I50.22 Chronic systolic (congestive) heart failure; I34.0 Nonrheumatic mitral (valve) insufficiency; E78.5 Hyperlipidemia, unspecified; I49.5 Sick sinus syndrome; Z85.828 Personal history of other malignant neoplasm of skin; Z87.891 Personal history of nicotine dependence; Z79.01 Long term (current) use of anticoagulants
CPT/HCPCS: 92960; 93005

== ENCOUNTER → 2025-08-07 12:38 | Outpatient (REF) | payer OTHER, SELFPAY | LOC: EMG 12:38 | PROVIDERS: ATTENDING PHYSICIAN Orthopaedic Surgery Hand Surgery; FAMILY PHYSICIAN Internal Medicine | DX: M79.641 Pain in right hand (principal); R20.0 Anesthesia of skin | CPT/HCPCS: 95886; 95909 ==